=== PATIENT | male | born 1965 | race Caucasian/White ===

== ENCOUNTER → 2017-10-28 13:59 | Outpatient (CLI) | payer BC, SELFPAY | PROVIDERS: Family Provider Family Medicine; PCP Family Medicine; Visit Provider Family Medicine | DX: E66.9 Obesity, unspecified (principal); Z71.3 Dietary counseling and surveillance ==

== ENCOUNTER → 2019-03-13 12:51 | Outpatient (POV) | payer BC, SELFPAY ==
[2019-03-13 13:12] VITALS: BP 146/86; PULSE 63; RESP 18; O2SAT 99; BMI 31.3
--- NOTE | 2019-03-13 15:04 | HMH.PMCON ---
Assessment and Plan (1) Arthropathy Current visit: Yes Status: Chronic Category: Medical Code(s): M12.9 - Arthropathy, unspecified (2) Lumbar spondylosis Current visit: Yes Status: Chronic Category: Medical Code(s): M47.816 - Spondylosis without myelopathy or radiculopathy, lumbar region - Assessment and plan all Dx Assessment and Plan for all problems:: We will schedule an L4-L5 L5-S1 bilateral lumbar medial branch block/facet joint injection. Patient has had good success with this in the past we will repeat it. Patient's been instructed to call the office if he has any issues prior to his next appointment. Dr. Sanches has reviewed this note and agrees with this plan of care. This note was dictated using voice recognition software and may contain errors or omissions HPI - Data of Consult Consult date: 03/13/19 Requesting Physician: Renetta Kitchen APRN Primary Care Provider: Jasper Marcelo MD - Consult Narrative Reason for consult: Back pain History of present illness: Mr. Tran is a 53 year old male who presents today for consultation in regards to his low back pain. Patient was seen 2 years ago when he had a bilateral medial branch at L4-L5 L5-S1. He received 2 years of 80% relief. Patient's begun to have the pain return he rates it a 5 out of 10 he is continuing a home stretching program he is lost 90 pounds. He is not on any anticoagulation therapy. He would like to repeat the injection given the efficacy of it last time. He is also on anti-inflammatory therapy. CC: Renetta Kitchen APRN [facility] History I have reviewed the patient's past medical history: Yes *Have you ever received a pneumonia vaccine?: No *Have you received a flu vaccine this season?: No Laterality Cases: Bilateral: Tonsillectomy Other Surgeries: Yes: Cholecystectomy Amputation: No Fractures: Yes (LEFT HIP) - *Social History Smoking Status: Never smoker Alcohol Intake: never *Occupational Status:: other Housing: house *Travel in the last 8 weeks: None Family Hx:: Hyperlipidemia, Hypertension Review of Systems - Review of Systems ROS General: no recent weight change, no fever, no sleep disturbances Respiratory: no cough, no shortness of air, no recurring pulmonary infections Cardiovascular/Peripheral Vascular: No chest pain, No palpitations, no edema, no shortness of breath. Gastrointestinal: no incontinence, normal bowel movements reported Genitourinary: no incontinence Musculoskeletal: Back pain Psychiatric: normal mood/ affect Neurological: [denies weakness in extremities], [denies balance issues] Meds Allergies Allergy/AdvReac Type Severity Reaction Status Date / Time No Known Allergies Allergy Unverified 07/27/17 15:05 Objective Vital signs: Pulse Resp BP Pulse Ox 63 18 146/86 H 99 03/13/19 13:12 03/13/19 13:12 03/13/19 13:12 03/13/19 13:12 Narrative: Physical Exam General: Alert and oriented x3, no acute distress, pleasant and cooperative, [on room air] Lungs: Resps E/U, Symmetrical chest expansion, Eyes: PERRL Musculoskeletal: Flexion and extension of lumbar spine somewhat guarded secondary to pain, deep tendon reflexes normal, strength in upper and lower extremities [5/5], slightly antalgic gait noted, positive Kemps test bilateral lumbar spine, positive facet loading lumbar spine bilaterally Neurological: speech clear, sexer equal, no gross sensory deficits Opioid Risk Tool - Opioid Risk Tool-Male Family hx alcohol abuse: N Family hx illegal drugs: N Family hx rx drug abuse: N Personal hx alcohol abuse: N Personal hx illegal drugs: N Personal hx rx drug abuse: N Age: 45+ Hx of sexual abuse: N Mental health issues-ADD,OCD,Bipolar, etc: N Hx of depression: N Male Risk Score: 0
--- NOTE | 2019-03-13 15:07 | P.CONS_ITS ---
Assessment and Plan (1) Arthropathy Current visit: Yes Status: Chronic Category: Medical Code(s): M12.9 - Arthropathy, unspecified (2) Lumbar spondylosis Current visit: Yes Status: Chronic Category: Medical Code(s): M47.816 - Spondylosis without myelopathy or radiculopathy, lumbar region - Assessment and plan all Dx Assessment and Plan for all problems:: We will schedule an L4-L5 L5-S1 bilateral lumbar medial branch block/facet joint injection. Patient has had good success with this in the past we will repeat it. Patient's been instructed to call the office if he has any issues prior to his next appointment. Dr. Sanches has reviewed this note and agrees with this plan of care. This note was dictated using voice recognition software and may contain errors or omissions HPI - Data of Consult Consult date: 03/13/19 Requesting Physician: Renetta Kitchen APRN Primary Care Provider: Jasper Marcelo MD - Consult Narrative Reason for consult: Back pain History of present illness: Mr. Tran is a 53 year old male who presents today for consultation in regards to his low back pain. Patient was seen 2 years ago when he had a bilateral medial branch at L4-L5 L5-S1. He received 2 years of 80% relief. Patient's begun to have the pain return he rates it a 5 out of 10 he is continuing a home stretching program he is lost 90 pounds. He is not on any anticoagulation therapy. He would like to repeat the injection given the efficacy of it last time. He is also on anti-inflammatory therapy. CC: Renetta Kitchen APRN [facility] History I have reviewed the patient's past medical history: Yes *Have you ever received a pneumonia vaccine?: No *Have you received a flu vaccine this season?: No Laterality Cases: Bilateral: Tonsillectomy Other Surgeries: Yes: Cholecystectomy Amputation: No Fractures: Yes (LEFT HIP) - *Social History Smoking Status: Never smoker Alcohol Intake: never *Occupational Status:: other Housing: house *Travel in the last 8 weeks: None Family Hx:: Hyperlipidemia, Hypertension Review of Systems - Review of Systems ROS General: no recent weight change, no fever, no sleep disturbances Respiratory: no cough, no shortness of air, no recurring pulmonary infections Cardiovascular/Peripheral Vascular: No chest pain, No palpitations, no edema, no shortness of breath. Gastrointestinal: no incontinence, normal bowel movements reported Genitourinary: no incontinence Musculoskeletal: Back pain Psychiatric: normal mood/ affect Neurological: [denies weakness in extremities], [denies balance issues] Meds Allergies Allergy/AdvReac Type Severity Reaction Status Date / Time No Known Allergies Allergy Unverified 07/27/17 15:05 Objective Vital signs: Pulse Resp BP Pulse Ox 63 18 146/86 H 99 03/13/19 13:12 03/13/19 13:12 03/13/19 13:12 03/13/19 13:12 Narrative: Physical Exam General: Alert and oriented x3, no acute distress, pleasant and cooperative, [on room air] Lungs: Resps E/U, Symmetrical chest expansion, Eyes: PERRL Musculoskeletal: Flexion and extension of lumbar spine somewhat guarded secondary to pain, deep tendon reflexes normal, strength in upper and lower extremities [5/5], slightly antalgic gait noted, positive Kemps test bilateral lumbar spine, positive facet loading
== END ==
PROVIDERS: PCP Family Medicine; Visit Provider Clinical Nurse Specialist Family Health
DX: M12.9 Arthropathy, unspecified (principal); M47.816 Spondylosis without myelopathy or radiculopathy, lumbar region
CPT/HCPCS: 99202

== ENCOUNTER → 2019-05-01 14:34 | Outpatient (POV) | payer BC, SELFPAY ==
[2019-05-01 15:14] VITALS: BP 140/68; PULSE 69; RESP 18; O2SAT 98; BMI 32.5
--- NOTE | 2019-05-02 10:11 | HMH.PAINSOAP ---
[facility] Pain Management SOAP Note Subjective:: Patient is a pleasant 53-year-old white male who we are treating for low back pain with lumbar spondylosis and facet arthropathy lumbar spine. Patient has had bilateral lumbar medial branch blocks in the past at L4-L5 L5-S1. Patient rates his pain a 3 out of 10 today. He got 90% relief with the injection. He would like to repeat this potentially being a RFA candidate. Patient is not on any anticoagulation therapy. He is continuing a home stretching program. He is on anti-inflammatory medications. He has had pain for over a year and he has had over 6 months of conservative treatments. He does not have any active infections. ROS General: no recent weight change, no fever, no sleep disturbances Respiratory: no cough, no shortness of air, no recurring pulmonary infections Cardiovascular/Peripheral Vascular: No chest pain, No palpitations, no edema, no shortness of breath. Gastrointestinal: no incontinence, normal bowel movements reported Genitourinary: no incontinence Musculoskeletal: Back pain Psychiatric: normal mood/ affect, [denies depression], [denies anxiety] Neurological: [denies weakness in extremities], [denies balance issues] Objective:: Physical Exam General: Alert and oriented x3, no acute distress, pleasant and cooperative, [on room air] Lungs: Resps E/U, Symmetrical chest expansion, Eyes: PERRL Musculoskeletal: Flexion and extension of lumbar spine somewhat guarded secondary to pain, deep tendon reflexes normal, strength in upper and lower extremities [5/5], normal gait noted, positive Kemps test and positive facet loading lumbar spine bilaterally Neurological: speech clear, bark scaler 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 I do believe given the benefit of the last one this would be appropriate. Patient may be a neurotomy candidate. I will follow-up with the patient after his injection reassess his symptoms at that time he is been instructed to call the office if he has any issues prior to his next appointment. Dr. Sanches has reviewed this note and agrees with this plan of care. This note was dictated using voice recognition software and may contain errors or omissions [facility] History I have reviewed the patient's past medical history: Yes Medical History: Denies:: Cancer, Diabetes Mellitus Type 1, Diabetes Mellitus Type 2, Seizures *Have you ever received a pneumonia vaccine?: Yes *Have you received a flu vaccine this season?: Yes Other Medical History: Denies: Blood Transfusion Reaction Laterality Cases: Bilateral: Tonsillectomy Other Surgeries: Yes: Cholecystectomy Amputation: No Fractures: Yes (LEFT HIP) - *Social History Smoking Status: Current every day smoker Tobacco Type: cigarettes # Packs/Day (cigarettes): 1 Alcohol Intake: current Alcohol Intake Frequency:: holidays/special occasions only *Occupational Status:: other Housing: house *Travel in the last 8 weeks: None Family Hx:: Hyperlipidemia, Hypertension
--- NOTE | 2019-05-02 10:15 | P.CONS_ITS ---
[facility] Pain Management SOAP Note Subjective:: Patient is a pleasant 53-year-old white male who we are treating for low back pain with lumbar spondylosis and facet arthropathy lumbar spine. Patient has had bilateral lumbar medial branch blocks in the past at L4-L5 L5-S1. Patient rates his pain a 3 out of 10 today. He got 90% relief with the injection. He would like to repeat this potentially being a RFA candidate. Patient is not on any anticoagulation therapy. He is continuing a home stretching program. He is on anti-inflammatory medications. He has had pain for over a year and he has had over 6 months of conservative treatments. He does not have any active infections. ROS General: no recent weight change, no fever, no sleep disturbances Respiratory: no cough, no shortness of air, no recurring pulmonary infections Cardiovascular/Peripheral Vascular: No chest pain, No palpitations, no edema, no shortness of breath. Gastrointestinal: no incontinence, normal bowel movements reported Genitourinary: no incontinence Musculoskeletal: Back pain Psychiatric: normal mood/ affect, [denies depression], [denies anxiety] Neurological: [denies weakness in extremities], [denies balance issues] Objective:: Physical Exam General: Alert and oriented x3, no acute distress, pleasant and cooperative, [on room air] Lungs: Resps E/U, Symmetrical chest expansion, Eyes: PERRL Musculoskeletal: Flexion and extension of lumbar spine somewhat guarded secondary to pain, deep tendon reflexes normal, strength in upper and lower extremities [5/5], normal gait noted, positive Kemps test and positive facet loading lumbar spine bilaterally Neurological: speech clear, shoe 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 I do believe given the benefit of the last one this would be appropriate. Patient may be a neurotomy candidate. I will follow-up with the patient after his injection reassess his symptoms at that time he is been instructed to call the office if he has any issues prior to his next appointment. Dr. Sanches has reviewed this note and agrees with this plan of care. This note was dictated using voice recognition software and may contain errors or omissions [facility] History I have reviewed the patient's past medical history: Yes Medical History: Denies:: Cancer, Diabetes Mellitus Type 1, Diabetes Mellitus Type 2, Seizures *Have you ever received a pneumonia vaccine?: Yes *Have you received a flu vaccine this season?: Yes Other Medical History: Denies: Blood Transfusion Reaction Laterality Cases: Bilateral: Tonsillectomy Other Surgeries: Yes: Cholecystectomy Amputation: No Fractures: Yes (LEFT HIP) - *Social History Smoking Status: Current every day smoker Tobacco Type: cigarettes # Packs/Day (cigarettes): 1 Alcohol Intake: current Alcohol Intake Frequency:: holidays/special occasions only *Occupational Status:: other Housing: house *Travel in the last 8 weeks: None Family Hx:: Hyperlipidemia, Hypertension
== END ==
PROVIDERS: PCP Family Medicine; Visit Provider Clinical Nurse Specialist Family Health
DX: M51.36 Other intervertebral disc degeneration, lumbar region (principal); M47.816 Spondylosis without myelopathy or radiculopathy, lumbar region; M54.06 Panniculitis affecting regions of neck and back, lumbar region
CPT/HCPCS: 99212

== ENCOUNTER → 2019-06-23 12:35 | Outpatient (CLI) | payer BC, SELFPAY ==
[2019-06-23 12:38] LABS: Adenovirus,PCR Not Detected (NotDetected); Bordetella Pertussis Not Detected (NotDetected); Chlamydophila Pneumoniae, PCR Not Detected (NotDetected); Coronavirus 229E Not Detected (NotDetected); Coronavirus NL63 Not Detected (NotDetected); Coronavirus OC43 Not Detected (NotDetected); Human Metapneumovirus Not Detected (NotDetected); Influenza A, PCR Not Detected (NotDetected); Influenza AH1, 2009 Not Detected (NotDetected); Influenza AH1, PCR Not Detected (NotDetected); Influenza AH3,PCR Not Detected (NotDetected); Influenza B, PCR Not Detected (NotDetected); Mycoplasma Pneumoniae, PCR Not Detected (NotDetected); Parainfluenza 1, PCR Not Detected (NotDetected); Parainfluenza 2, PCR Not Detected (NotDetected); Parainfluenza 3, PCR Not Detected (NotDetected); Parainfluenza 4, PCR Not Detected (NotDetected); Respiratory Syncytial Virus Not Detected (NotDetected); Rhinovirus/Enterovirus Not Detected (NotDetected)
[2019-06-23 16:08] LABS: Coronovirus HKU1,PCR Detected (NotDetected)
== END ==
PROVIDERS: Visit Provider Family Medicine
DX: J06.9 Acute upper respiratory infection, unspecified (principal)
CPT/HCPCS: 87486; 87581; 87633; 87798

== ENCOUNTER → 2019-07-10 15:06 | Outpatient (POV) | payer BC, SELFPAY ==
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
--- NOTE | 2019-07-10 | XR_ITS ---
PROCEDURE: XR HIP RT 2-3V W/PELVIS CLINICAL INDICATION: BILATERAL HIP PAIN COMPARISON: HIP2L HIP-2 VIEWS-LT from 07/23/2014 LS5 LUMBAR SPINE 5 VIEWS from 07/23/2014 FINDINGS: There are mild osteoarthritic changes of the right hip. No fracture or dislocation. No lytic or blastic change. IMPRESSION: Minimal osteoarthritic change right hip Dictated by: Dorian Osorio MD 07/10/2019 17:05 Electronically signed by Dorian Osorio MD in [place] 07/10/2019 17:05
[2019-07-10 15:22] VITALS: BP 151/84; PULSE 67; RESP 18; O2SAT 99; BMI 33.2
--- NOTE | 2019-07-10 15:40 | HMH.PAINSOAP ---
[facility] Pain Management SOAP Note Subjective:: Patient is a pleasant 53-year-old white male who presents today for follow-up after his second lumbar medial branch block. Patient states that it is helped up to 90% rating his pain a 1 out of 10 he states his pain now is lower in his SI joint and left hip. Patient does not have any recent diagnostic imaging we will get some x-rays. Patient is continuing with chiropractic therapy and massage therapy and overall doing well. Patient and I briefly discussed an SI joint belt using a look into this. ROS General: no recent weight change, no fever, no sleep disturbances Respiratory: no cough, no shortness of air, no recurring pulmonary infections Cardiovascular/Peripheral Vascular: No chest pain, No palpitations, no edema, no shortness of breath. Gastrointestinal: no new onset incontinence, normal bowel movements reported Genitourinary: no new onset incontinence Musculoskeletal: SI joint pain Psychiatric: normal mood/ affect Neurological: [denies new onset weakness in extremities], [denies new onset balance issues] Objective:: Physical Exam General: Alert and oriented x3, no acute distress, pleasant and cooperative, [on room air] Lungs: Resps E/U, Symmetrical chest expansion, Eyes: PERRL Musculoskeletal: Flexion and extension of lumbar spine somewhat guarded secondary to pain, deep tendon reflexes normal, strength in upper and lower extremities [5/5], [abnormal gait noted] Neurological: speech clear, packer inspector equal, no gross sensory deficits Assessment:: Low back pain, spondylosis, SI joint pain, left hip pain Plan:: We will send the patient for some x-rays of his pelvis, SI joints, left hip. Patient can continue with chiropractic and massage therapy. Using a look into if the patient's insurance will cover massage therapy if I write a prescription for him if it does I would be happy to write him a prescription. Patient has been instructed to call the office if he has any issues prior to his next appointment. Dr. Sanches has reviewed this note and agrees with this plan of care. This note was dictated using voice recognition software and may contain errors or omissions [facility] History I have reviewed the patient's past medical history: Yes Medical History: Denies:: Cancer, Diabetes Mellitus Type 1, Diabetes Mellitus Type 2, Seizures *Have you ever received a pneumonia vaccine?: Yes *Have you received a flu vaccine this season?: Yes Other Medical History: Denies: Blood Transfusion Reaction Laterality Cases: Bilateral: Tonsillectomy Other Surgeries: Yes: Cholecystectomy Amputation: No Fractures: Yes (LEFT HIP) - *Social History Smoking Status: Current every day smoker Tobacco Type: cigarettes # Packs/Day (cigarettes): 1 Alcohol Intake: current Alcohol Intake Frequency:: holidays/special occasions only *Occupational Status:: other Housing: house *Travel in the last 8 weeks: None Family Hx:: Hyperlipidemia, Hypertension
--- NOTE | 2019-07-10 15:43 | P.CONS_ITS ---
[facility] Pain Management SOAP Note Subjective:: Patient is a pleasant 53-year-old white male who presents today for follow-up after his second lumbar medial branch block. Patient states that it is helped up to 90% rating his pain a 1 out of 10 he states his pain now is lower in his SI joint and left hip. Patient does not have any recent diagnostic imaging we will get some x-rays. Patient is continuing with chiropractic therapy and massage therapy and overall doing well. Patient and I briefly discussed an SI joint belt using a look into this. ROS General: no recent weight change, no fever, no sleep disturbances Respiratory: no cough, no shortness of air, no recurring pulmonary infections Cardiovascular/Peripheral Vascular: No chest pain, No palpitations, no edema, no shortness of breath. Gastrointestinal: no new onset incontinence, normal bowel movements reported Genitourinary: no new onset incontinence Musculoskeletal: SI joint pain Psychiatric: normal mood/ affect Neurological: [denies new onset weakness in extremities], [denies new onset balance issues] Objective:: Physical Exam General: Alert and oriented x3, no acute distress, pleasant and cooperative, [on room air] Lungs: Resps E/U, Symmetrical chest expansion, Eyes: PERRL Musculoskeletal: Flexion and extension of lumbar spine somewhat guarded secondary to pain, deep tendon reflexes normal, strength in upper and lower extremities [5/5], [abnormal gait noted] Neurological: speech clear, boat joiner helper equal, no gross sensory deficits Assessment:: Low back pain, spondylosis, SI joint pain, left hip pain Plan:: We will send the patient for some x-rays of his pelvis, SI joints, left hip. Patient can continue with chiropractic and massage therapy. Using a look into if the patient's insurance will cover massage therapy if I write a prescription for him if it does I would be happy to write him a prescription. Patient has been instructed to call the office if he has any issues prior to his next appointment. Dr. Sanches has reviewed this note and agrees with this plan of care. This note was dictated using voice recognition software and may contain errors or omissions [facility] History I have reviewed the patient's past medical history: Yes Medical History: Denies:: Cancer, Diabetes Mellitus Type 1, Diabetes Mellitus Type 2, Seizures *Have you ever received a pneumonia vaccine?: Yes *Have you received a flu vaccine this season?: Yes Other Medical History: Denies: Blood Transfusion Reaction Laterality Cases: Bilateral: Tonsillectomy Other Surgeries: Yes: Cholecystectomy Amputation: No Fractures: Yes (LEFT HIP) - *Social History Smoking Status: Current every day smoker Tobacco Type: cigarettes # Packs/Day (cigarettes): 1 Alcohol Intake: current Alcohol Intake Frequency:: holidays/special occasions only *Occupational Status:: other Housing: house *Travel in the last 8 weeks: None Family Hx:: Hyperlipidemia, Hypertension
--- NOTE | 2019-07-10 16:11 | XR_ITS ---
PROCEDURE: XR SACROILIAC JOINT BI MIN 3V CLINICAL INDICATION: LOW BACK PAIN COMPARISON: LSWO CT LUMBAR SPINE W/O CONTRAST from 01/25/2017 FINDINGS: There is some mild sclerosis of the right SI joint. The left SI joint has an unremarkable appearance. Postsurgical and degenerative changes are present in the left hip IMPRESSION: Mild sclerosis of the right SI joint Dictated by: Dorian Osorio MD 07/10/2019 17:10 Electronically signed by Dorian Osorio MD in [place] 07/10/2019 17:10
== END ==
PROVIDERS: PCP Family Medicine; Visit Provider Clinical Nurse Specialist Family Health
DX: M54.5 Low back pain (principal); M25.552 Pain in left hip; M46.1 Sacroiliitis, not elsewhere classified; M47.9 Spondylosis, unspecified
CPT/HCPCS: 72202; 73502; 99212

== ENCOUNTER → 2019-07-24 15:08 | Outpatient (POV) | payer BC, SELFPAY ==
[2019-07-24 15:41] VITALS: BP 148/82; PULSE 65; RESP 18; O2SAT 99; BMI 33.2
--- NOTE | 2019-07-25 08:23 | P.CONS_ITS ---
[facility] Pain Management SOAP Note Subjective:: Date of service 07/24/2019 Patient is a pleasant 53-year-old white male who presents today for follow-up after a left SI joint injection. Patient's been treated for low back pain with left leg pain. He is also been treated for buttock and left hip pain. Patient says that he got approximately 90% relief following his injection. He does rate his pain 1 out of 10 today. Patient does say his pain return for 1 day since getting the injection, however, patient says that he did follow-up with massage therapy and did not get relief. He does say that he is not interested in further injection therapy at this time, as he feels his pain is doing much better overall. He is continuing with anti-inflammatories on a home stretching program. Patient does also state chiropractic therapy. Review of Systems General: No recent weight changes, no fever, no sleep disturbances Respiratory: No cough, no shortness of air, no recurring pulmonary infections Cardiovascular/peripheral vascular: No chest pain, no palpitations, no edema, no shortness of breath Gastrointestinal: No new onset incontinence, normal bowel movements reported Genitourinary: No new onset incontinence Musculoskeletal: Low back pain, left buttock pain, left hip pain, left leg pain Psychiatric: Normal mood/affect Neurological: [Denies weakness in extremities], [denies balance issues] Objective:: Physical exam General: Alert and oriented x3, no acute distress, pleasant and cooperative, [on room air] Lungs: Respirations even and unlabored, symmetrical chest expansion Eyes: PERRL Musculoskeletal: Flexion and extension of lumbar spine somewhat guarded secondary to pain, deep tendon reflexes normal, strength in upper and lower extremities [5/5], [abnormal gait noted] Neurological: Speech clear, 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 He and I did discuss possible excess stabilization procedure in the future if he continues to need SI joint injections. He is not interested in this type of therapy at this time. We also discussed a SI belt. Patient states he will purchase 1 to see if he can get relief with it. Patient would like to follow-up with us as needed. He has been instructed to contact clinic if he has any concerns. Dr. Sanches has reviewed this note and agrees with this plan of care. This note was dictated using voice recognition software and make contain errors or omissions. [facility] History I have reviewed the patient's past medical history: Yes Medical History: Denies:: Cancer, Diabetes Mellitus Type 1, Diabetes Mellitus Type 2, Seizures *Have you ever received a pneumonia vaccine?: Yes *Have you received a flu vaccine this season?: Yes Other Medical History: Denies: Blood Transfusion Reaction Laterality Cases: Bilateral: Tonsillectomy Other Surgeries: Yes: Cholecystectomy Amputation: No Fractures: Yes (LEFT HIP) - *Social History Smoking Status: Current every day smoker Tobacco Type: cigarettes # Packs/Day (cigarettes): 1 Alcohol Intake: current Alcohol Intake Frequency:: holidays/special occasions only *Occupational Status:: other Housing: house *Travel in the last 8 weeks: None Family Hx:: Hyperlipidemia, Hypertension
== END ==
PROVIDERS: PCP Family Medicine; Visit Provider Clinical Nurse Specialist Family Health
DX: M46.1 Sacroiliitis, not elsewhere classified (principal); M70.62 Trochanteric bursitis, left hip
CPT/HCPCS: 99212

== ENCOUNTER → 2021-09-18 12:23 | Outpatient (CLI) | payer BC, SELFPAY ==
[2021-09-18 13:10] LABS: Adenovirus,PCR Not Detected (NotDetected); Bordetella Pertussis Not Detected (NotDetected); Chlamydophila Pneumoniae, PCR Not Detected (NotDetected); Coronavirus 19, PCR Not Detected (NotDetected); Coronavirus 229E Not Detected (NotDetected); Coronavirus NL63 Not Detected (NotDetected); Coronavirus OC43 Not Detected (NotDetected); Coronovirus HKU1,PCR Not Detected (NotDetected); Influenza A, PCR Not Detected (NotDetected); Influenza AH1, 2009 Not Detected (NotDetected); Influenza AH1, PCR Not Detected (NotDetected); Influenza AH3,PCR Not Detected (NotDetected); Influenza B, PCR Not Detected (NotDetected); Mycoplasma Pneumoniae, PCR Not Detected (NotDetected); Parainfluenza 1, PCR Not Detected (NotDetected); Parainfluenza 2, PCR Not Detected (NotDetected); Parainfluenza 3, PCR Not Detected (NotDetected); Parainfluenza 4, PCR Not Detected (NotDetected); Respiratory Syncytial Virus Not Detected (NotDetected); Rhinovirus/Enterovirus Not Detected (NotDetected)
[2021-09-18 13:29] LABS: Basophils % 1.3 % (0.1-2.0); Eosinophils % 0.4 % (0.1-12.0); Hemoglobin 12.2 g/dL (14.1-18.0); Lymphocytes # 1.5 K/mm3 (0.7-4.5); Lymphocytes % 54.9 % (10-50); Mean Corpuscular HGB Conc 33.8 g/dL (31.8-35.4); Mean Corpuscular Hemoglobin 30.1 pg (27.0-31.2); Mean Platelet Volume 9.6 fl (7.4-10.4); Monocytes # 0.1 K/mm3 (0.1-1.0); Monocytes % 3.3 % (1.7-9.3); Neutrophils # 1.1 K/mm3 (1.8-7.8); Neutrophils % 40.2 % (37.0-80.0); Platelet Count 80 K/mm3 (142-424); Red Blood Count 4.05 M/mm3 (4.60-6.20); Red Cell Distribution Width 18.9 % (11.5-17.5); White Blood Count 2.6 K/mm3 (4.8-10.8)
[2021-09-18 13:41] LABS: MANUAL DIFFERENTIAL MANUAL DIFFERENTIAL (MANUAL DIFF)
[2021-09-18 17:31] LABS: Lymphocytes % 67 % (10-50); Monocytes % 4 % (2-9); Neutrophils % 29 % (42-76); Platelet Estimate Moderate Decrease; RBC Morphology Normal; Total Cells Counted 100
[2021-09-18 17:43] LABS: Human Metapneumovirus Detected (NotDetected)
== END ==
PROVIDERS: PCP Family Medicine; Visit Provider Family Medicine
DX: Z20.822 Contact with and (suspected) exposure to COVID-19 (principal); B97.81 Human metapneumovirus as the cause of diseases classified elsewhere
CPT/HCPCS: 36415; 85007; 85025; 87581; 87632; 87798; C9803; U0003; U0005

== ENCOUNTER → 2022-01-01 11:55 | Outpatient (CLI) | payer BC, SELFPAY ==
[2022-01-01 12:32] LABS: Basophils # 0.1 K/mm3 (0-0.2); Eosinophils % 0.4 % (0.1-12.0); Hematocrit 31.6 % (42.0-52.0); Hemoglobin 10.4 g/dL (14.1-18.0); Lymphocytes # 2.2 K/mm3 (0.7-4.5); Lymphocytes % 82.9 % (10-50); Mean Corpuscular HGB Conc 32.9 g/dL (31.8-35.4); Mean Corpuscular Hemoglobin 29.8 pg (27.0-31.2); Mean Corpuscular Volume 90.8 fl (80-94); Mean Platelet Volume 15.5 fl (7.4-10.4); Monocytes # 0.1 K/mm3 (0.1-1.0); Monocytes % 2.9 % (1.7-9.3); Neutrophils # 0.4 K/mm3 (1.8-7.8); Red Blood Count 3.48 M/mm3 (4.60-6.20); Red Cell Distribution Width 19.5 % (11.5-17.5); White Blood Count 2.6 K/mm3 (4.8-10.8)
[2022-01-01 12:33] LABS: Neutrophils % 13.8 % (37.0-80.0)
[2022-01-01 12:37] LABS: Platelet Count 30 K/mm3 (142-424)
[2022-01-01 12:41] LABS: Alanine Aminotransferase 37 U/L (12-78); Albumin Level 4.4 g/dl (3.5-5.0); Albumin/Globulin Ratio 1.3 (1.1-1.8); Alkaline Phosphatase 82 U/L (38-126); Anion Gap 11.6 mEq/L (5-15); Aspartate Amino Transferase 38 U/L (17-59); Bilirubin,Total 0.4 mg/dl (0.2-1.3); Blood Urea Nitrogen 10 mg/dl (9-20); Calcium 9.1 mg/dl (8.4-10.2); Carbon Dioxide 29 mmol/L (22.0-30.0); Chloride 103 mmol/L (98-107); Estimated Glomerular Filt Rate 117 ml/min (>60); GFR (African American) 142 ML/MIN (>60); Globulin 3.3 g/dL (1.3-3.2); Glucose 114 mg/dl (74-100); Lactate Dehydrogenase 253 U/L (313-618); Potassium 3.6 mmoL/L (3.5-5.1); Sodium 140 mmol/L (136-145); Total Protein,Serum 7.7 g/dl (6.3-8.2); Uric Acid 5.7 mg/dl (3.5-8.5)
[2022-01-01 12:42] LABS: Iron 121 ug/dL (49-181)
[2022-01-01 12:44] LABS: Activated Partial Thrombo Time 25.6 seconds (22.8-30.6); Fibrinogen 425 mg/dL (229.9-363.5); INR 1.07 (0.9-1.1); MANUAL DIFFERENTIAL MANUAL DIFFERENTIAL (MANUAL DIFF)
[2022-01-01 12:52] LABS: Total Iron Binding Capacity 324 ug/dL (261-462)
[2022-01-01 13:13] LABS: Prostate Specific Ag Screen 0.7 ng/ml (0.0-4.0)
[2022-01-01 13:33] LABS: Lymphocytes % 85 % (10-50); Monocytes % 11 % (2-9); Neutrophils % 4 % (42-76); Total Cells Counted 100
[2022-01-01 13:34] LABS: Anisocytosis 1+; Hypochromasia 1+; Ovalocytes 1+; Platelet Estimate Marked Decrease
[2022-01-01 13:37] LABS: Ferritin 236 ng/ml (17.9-464)
[2022-01-01 13:47] LABS: Vitamin B12 596 pg/mL (239-931)
--- NOTE | 2022-01-01 14:21 | PC.NURSE ---
Vidal GUTIERREZ CALLED AND REPORTED PLATELET COUNT OF 30. RN REPEATED AND VERIFIED PT NAME, , AND LAB VALUE. CRITICAL RESULTS CALLED TO Zac VALLEJO. NO NEW ORDERS RECIEVED AT THIS TIME.
[2022-01-02 13:12] LABS: Albumin 3.9 g/dL (2.9-4.4); Alpha-1-Globulin 0.3 g/dL (0.0-0.4); Alpha-2-Globulin 0.6 g/dL (0.4-1.0); Gamma Globulin 1.5 g/dL (0.4-1.8); Protein, Total 7.3 g/dL (6.0-8.5)
[2022-01-02 14:13] LABS: Immunoglobulin A, Qn 385 mg/dL (90-386); Immunoglobulin G, Qn 1364 mg/dL (603-1613); Immunoglobulin M, Qn 247 mg/dL (20-172)
[2022-01-03 12:07] LABS: Peripheral Smear Review Scanned Result
[2022-01-03 20:49] LABS: Free Kappa Lt Chains 34.4; Free Lambda Lt Chains 28.5
== END ==
PROVIDERS: Visit Provider Internal Medicine Medical Oncology
DX: D61.818 Other pancytopenia (principal); Z12.5 Encounter for screening for malignant neoplasm of prostate
CPT/HCPCS: 36415; 80053; 82607; 82728; 82746; 82784; 83540; 83550; 83615; 83883; 84155; 84165; 84550; 85007; 85025; 85384; 85610; 85730; 86334; G0103

== ENCOUNTER 2022-01-09 10:08 | Outpatient (CLI) | payer BC, SELFPAY ==
[2022-01-09 10:16] VITALS: BMI 37.6
[2022-01-09 10:37] LABS: Basophils # 0.1 K/mm3 (0-0.2); Basophils % 2.9 % (0.1-2.0); Eosinophils % 0.1 % (0.1-12.0); Hematocrit 28.4 % (42.0-52.0); Hemoglobin 9.6 g/dL (14.1-18.0); Lymphocytes # 2.6 K/mm3 (0.7-4.5); Lymphocytes % 81.1 % (10-50); Mean Corpuscular HGB Conc 33.9 g/dL (31.8-35.4); Mean Corpuscular Hemoglobin 30.6 pg (27.0-31.2); Mean Corpuscular Volume 90.2 fl (80-94); Monocytes # 0.1 K/mm3 (0.1-1.0); Monocytes % 2.9 % (1.7-9.3); Neutrophils # 0.4 K/mm3 (1.8-7.8); Red Blood Count 3.15 M/mm3 (4.60-6.20); Red Cell Distribution Width 19.8 % (11.5-17.5); White Blood Count 3.2 K/mm3 (4.8-10.8)
[2022-01-09 10:38] LABS: Neutrophils % 12.9 % (37.0-80.0)
[2022-01-09 10:39] LABS: Platelet Count 46 K/mm3 (142-424)
[2022-01-09 10:40] LABS: MANUAL DIFFERENTIAL MANUAL DIFFERENTIAL (MANUAL DIFF)
[2022-01-09 11:00] LABS: Lymphocytes % 74 % (10-50); Monocytes % 16 % (2-9); Neutrophils % 3 % (42-76); Nucleated Red Blood Cells 1; Ovalocytes 1+; Platelet Estimate Marked Decrease; Total Cells Counted 100
[2022-01-09 11:01] LABS: Anisocytosis 1+; Hypochromasia 1+
--- NOTE | 2022-01-09 12:00 | PC.NURSE ---
1035 CBC collected per R hand x 1 stick. Patient here for labs only.
--- NOTE | 2022-01-09 12:02 | PC.NURSE ---
1025 CBC collected via R hand x1 stick. Patient here for labs only.
== END 2022-01-09 10:30 | disposition home or self-care (01) ==
LOC: INF 10:10
PROVIDERS: PCP Family Medicine; Visit Provider Internal Medicine Medical Oncology
DX: D61.818 Other pancytopenia (principal)
CPT/HCPCS: 36415; 85007; 85025

== ENCOUNTER → 2022-03-11 14:51 | Outpatient (CLI) | payer BC, SELFPAY ==
[2022-03-11 15:01] VITALS: BMI 34.7
[2022-03-11 15:15] LABS: Basophils # 0.1 K/mm3 (0-0.2); Basophils % 1.6 % (0.1-2.0); Eosinophils % 0.3 % (0.1-12.0); Hematocrit 31.8 % (42.0-52.0); Hemoglobin 9.7 g/dL (14.1-18.0); Lymphocytes # 1.3 K/mm3 (0.7-4.5); Lymphocytes % 16.4 % (10-50); Mean Corpuscular HGB Conc 30.4 g/dL (31.8-35.4); Mean Corpuscular Hemoglobin 30.8 pg (27.0-31.2); Mean Corpuscular Volume 101.5 fl (80-94); Mean Platelet Volume 9.4 fl (7.4-10.4); Monocytes # 1.5 K/mm3 (0.1-1.0); Monocytes % 19.4 % (1.7-9.3); Neutrophils # 4.9 K/mm3 (1.8-7.8); Neutrophils % 62.3 % (37.0-80.0); Platelet Count 417 K/mm3 (142-424); Red Blood Count 3.13 M/mm3 (4.60-6.20); Red Cell Distribution Width 22.2 % (11.5-17.5); White Blood Count 7.9 K/mm3 (4.8-10.8)
[2022-03-11 15:23] LABS: Potassium 3.3 mmoL/L (3.5-5.1)
[2022-03-11 15:24] LABS: Chloride 108 mmol/L (98-107); Sodium 142 mmol/L (136-145)
[2022-03-11 15:25] LABS: Alanine Aminotransferase 36 U/L (12-78); Aspartate Amino Transferase 55 U/L (17-59); Blood Urea Nitrogen 6 mg/dl (9-20); Creatinine Clearance Estimated 210 mL/min (50-200); Estimated Glomerular Filt Rate 140 ml/min (>60); GFR (African American) 169 ML/MIN (>60)
[2022-03-11 15:26] LABS: Albumin Level 3.4 g/dl (3.5-5.0); Albumin/Globulin Ratio 1.1 (1.1-1.8); Anion Gap 9.3 mEq/L (5-15); Calcium 9.1 mg/dl (8.4-10.2); Carbon Dioxide 28 mmol/L (22.0-30.0); Glucose 127 mg/dl (74-100); Total Protein,Serum 6.4 g/dl (6.3-8.2)
[2022-03-11 15:27] LABS: Alkaline Phosphatase 109 U/L (38-126); Bilirubin,Total 0.2 mg/dl (0.2-1.3)
== END ==
PROVIDERS: PCP Family Medicine
DX: Z45.2 Encounter for adjustment and management of vascular access device (principal)
CPT/HCPCS: 36592; 80053; 85025

== ENCOUNTER 2022-03-18 14:52 | Outpatient (CLI) | payer BC, SELFPAY ==
[2022-03-18 14:59] VITALS: BMI 34.7
[2022-03-18 15:21] LABS: Basophils # 0.1 K/mm3 (0-0.2); Basophils % 1.1 % (0.1-2.0); Eosinophils # 0.1 K/mm3 (0.0-0.4); Eosinophils % 0.9 % (0.1-12.0); Hematocrit 36.4 % (42.0-52.0); Lymphocytes % 11.2 % (10-50); Mean Corpuscular HGB Conc 30.4 g/dL (31.8-35.4); Mean Corpuscular Hemoglobin 31.1 pg (27.0-31.2); Mean Corpuscular Volume 102.2 fl (80-94); Mean Platelet Volume 8.6 fl (7.4-10.4); Monocytes % 11.2 % (1.7-9.3); Neutrophils # 6.8 K/mm3 (1.8-7.8); Neutrophils % 75.6 % (37.0-80.0); Platelet Count 396 K/mm3 (142-424); Red Blood Count 3.56 M/mm3 (4.60-6.20); Red Cell Distribution Width 20.4 % (11.5-17.5)
[2022-03-18 15:24] LABS: Alanine Aminotransferase 29 U/L (12-78); Albumin Level 3.5 g/dl (3.5-5.0); Albumin/Globulin Ratio 1.2 (1.1-1.8); Alkaline Phosphatase 102 U/L (38-126); Anion Gap 6.4 mEq/L (5-15); Aspartate Amino Transferase 40 U/L (17-59); Bilirubin,Total 0.3 mg/dl (0.2-1.3); Blood Urea Nitrogen 4 mg/dl (9-20); Calcium 9.1 mg/dl (8.4-10.2); Carbon Dioxide 28 mmol/L (22.0-30.0); Chloride 109 mmol/L (98-107); Creatinine Clearance Estimated 180 mL/min (50-200); Estimated Glomerular Filt Rate 117 ml/min (>60); GFR (African American) 142 ML/MIN (>60); Glucose 150 mg/dl (74-100); Potassium 3.4 mmoL/L (3.5-5.1); Sodium 140 mmol/L (136-145); Total Protein,Serum 6.5 g/dl (6.3-8.2)
== END 2022-03-18 15:25 | disposition home or self-care (01) ==
PROVIDERS: PCP Family Medicine; Visit Provider Internal Medicine Medical Oncology
DX: Z45.2 Encounter for adjustment and management of vascular access device (principal)
CPT/HCPCS: 36592; 80053; 85025

== ENCOUNTER 2022-03-25 11:04 | Outpatient (CLI) | payer BC, SELFPAY ==
[2022-03-25 11:10] VITALS: BMI 34.7
[2022-03-25 11:25] LABS: Basophils # 0.2 K/mm3 (0-0.2); Basophils % 1.5 % (0.1-2.0); Eosinophils # 0.1 K/mm3 (0.0-0.4); Eosinophils % 1.3 % (0.1-12.0); Hematocrit 40.3 % (42.0-52.0); Hemoglobin 11.9 g/dL (14.1-18.0); Lymphocytes # 0.9 K/mm3 (0.7-4.5); Lymphocytes % 8.1 % (10-50); Mean Corpuscular HGB Conc 29.4 g/dL (31.8-35.4); Mean Corpuscular Hemoglobin 30.5 pg (27.0-31.2); Mean Corpuscular Volume 103.6 fl (80-94); Mean Platelet Volume 8.3 fl (7.4-10.4); Neutrophils # 8.6 K/mm3 (1.8-7.8); Neutrophils % 80.1 % (37.0-80.0); Platelet Count 384 K/mm3 (142-424); Red Blood Count 3.89 M/mm3 (4.60-6.20); Red Cell Distribution Width 18.9 % (11.5-17.5); White Blood Count 10.7 K/mm3 (4.8-10.8)
[2022-03-25 11:34] LABS: Chloride 108 mmol/L (98-107); Potassium 3.7 mmoL/L (3.5-5.1); Sodium 141 mmol/L (136-145)
[2022-03-25 11:36] LABS: Blood Urea Nitrogen 6 mg/dl (9-20); Creatinine Clearance Estimated 210 mL/min (50-200); Estimated Glomerular Filt Rate 140 ml/min (>60); GFR (African American) 169 ML/MIN (>60)
[2022-03-25 11:37] LABS: Alanine Aminotransferase 29 U/L (12-78); Albumin Level 3.9 g/dl (3.5-5.0); Albumin/Globulin Ratio 1.2 (1.1-1.8); Alkaline Phosphatase 95 U/L (38-126); Anion Gap 9.7 mEq/L (5-15); Aspartate Amino Transferase 40 U/L (17-59); Bilirubin,Total 0.3 mg/dl (0.2-1.3); Calcium 9.3 mg/dl (8.4-10.2); Carbon Dioxide 27 mmol/L (22.0-30.0); Globulin 3.3 g/dL (1.3-3.2); Glucose 111 mg/dl (74-100); Total Protein,Serum 7.2 g/dl (6.3-8.2)
== END 2022-03-25 11:39 | disposition home or self-care (01) ==
PROVIDERS: PCP Family Medicine; Visit Provider Internal Medicine Medical Oncology
DX: Z45.2 Encounter for adjustment and management of vascular access device (principal)
CPT/HCPCS: 36592; 80053; 85025; J1642

== ENCOUNTER 2022-03-31 11:29 | Outpatient (CLI) | payer BC, SELFPAY ==
[2022-03-31 11:35] VITALS: BMI 34.7
[2022-03-31 11:54] LABS: Basophils # 0.1 K/mm3 (0-0.2); Basophils % 1.2 % (0.1-2.0); Eosinophils # 0.2 K/mm3 (0.0-0.4); Eosinophils % 1.4 % (0.1-12.0); Hematocrit 40.3 % (42.0-52.0); Hemoglobin 12.1 g/dL (14.1-18.0); Lymphocytes # 0.9 K/mm3 (0.7-4.5); Lymphocytes % 8.1 % (10-50); Mean Corpuscular HGB Conc 29.9 g/dL (31.8-35.4); Mean Corpuscular Hemoglobin 30.5 pg (27.0-31.2); Mean Corpuscular Volume 101.8 fl (80-94); Mean Platelet Volume 7.9 fl (7.4-10.4); Monocytes # 0.9 K/mm3 (0.1-1.0); Monocytes % 8.2 % (1.7-9.3); Neutrophils # 9.1 K/mm3 (1.8-7.8); Neutrophils % 81.1 % (37.0-80.0); Platelet Count 307 K/mm3 (142-424); Red Blood Count 3.96 M/mm3 (4.60-6.20); Red Cell Distribution Width 17.5 % (11.5-17.5); White Blood Count 11.3 K/mm3 (4.8-10.8)
[2022-03-31 11:57] LABS: Chloride 107 mmol/L (98-107); Potassium 3.6 mmoL/L (3.5-5.1); Sodium 142 mmol/L (136-145)
[2022-03-31 11:59] LABS: Alanine Aminotransferase 23 U/L (12-78); Alkaline Phosphatase 83 U/L (38-126); Aspartate Amino Transferase 31 U/L (17-59); Bilirubin,Total 0.4 mg/dl (0.2-1.3); Blood Urea Nitrogen 7 mg/dl (9-20); Creatinine Clearance Estimated 180 mL/min (50-200); Estimated Glomerular Filt Rate 117 ml/min (>60); GFR (African American) 142 ML/MIN (>60)
[2022-03-31 12:00] LABS: Albumin/Globulin Ratio 1.3 (1.1-1.8); Anion Gap 13.6 mEq/L (5-15); Calcium 8.6 mg/dl (8.4-10.2); Carbon Dioxide 25 mmol/L (22.0-30.0); Globulin 3.2 g/dL (1.3-3.2); Glucose 134 mg/dl (74-100); Total Protein,Serum 7.2 g/dl (6.3-8.2)
== END 2022-03-31 11:55 | disposition home or self-care (01) ==
LOC: INF 11:30
PROVIDERS: PCP Family Medicine
DX: D61.818 Other pancytopenia (principal); Z45.2 Encounter for adjustment and management of vascular access device
CPT/HCPCS: 36592; 80053; 85025

== ENCOUNTER 2022-04-15 09:53 | Outpatient (CLI) | payer BC, SELFPAY ==
[2022-04-15 09:58] VITALS: BMI 34.7
[2022-04-15 10:16] LABS: Basophils # 0.1 K/mm3 (0-0.2); Basophils % 0.8 % (0.1-2.0); Eosinophils # 0.4 K/mm3 (0.0-0.4); Eosinophils % 5.9 % (0.1-12.0); Hematocrit 39.9 % (42.0-52.0); Hemoglobin 12.2 g/dL (14.1-18.0); Lymphocytes # 0.6 K/mm3 (0.7-4.5); Lymphocytes % 8.6 % (10-50); Mean Corpuscular HGB Conc 30.5 g/dL (31.8-35.4); Mean Corpuscular Hemoglobin 29.9 pg (27.0-31.2); Mean Platelet Volume 8.3 fl (7.4-10.4); Monocytes # 0.2 K/mm3 (0.1-1.0); Monocytes % 3.5 % (1.7-9.3); Neutrophils # 5.5 K/mm3 (1.8-7.8); Neutrophils % 81.2 % (37.0-80.0); Platelet Count 277 K/mm3 (142-424); Red Blood Count 4.07 M/mm3 (4.60-6.20); White Blood Count 6.8 K/mm3 (4.8-10.8)
[2022-04-15 10:27] LABS: Alanine Aminotransferase 27 U/L (12-78); Albumin/Globulin Ratio 1.2 (1.1-1.8); Alkaline Phosphatase 99 U/L (38-126); Aspartate Amino Transferase 33 U/L (17-59); Blood Urea Nitrogen 12 mg/dl (9-20); Calcium 9.3 mg/dl (8.4-10.2); Carbon Dioxide 28 mmol/L (22.0-30.0); Chloride 105 mmol/L (98-107); Creatinine Clearance Estimated 157 mL/min (50-200); Estimated Glomerular Filt Rate 100 ml/min (>60); GFR (African American) 121 ML/MIN (>60); Globulin 3.3 g/dL (1.3-3.2); Glucose 106 mg/dl (74-100); Sodium 140 mmol/L (136-145); Total Protein,Serum 7.3 g/dl (6.3-8.2)
[2022-04-15 10:30] LABS: Bilirubin,Total < 0.1 mg/dl (0.2-1.3)
== END 2022-04-15 10:25 | disposition home or self-care (01) ==
LOC: INF 09:55
PROVIDERS: PCP Family Medicine; Visit Provider Internal Medicine Medical Oncology
DX: D61.818 Other pancytopenia (principal); Z45.2 Encounter for adjustment and management of vascular access device
CPT/HCPCS: 36592; 80053; 85025

== ENCOUNTER 2022-04-17 09:55 | Outpatient (CLI) | payer BC, SELFPAY ==
[2022-04-17 10:01] VITALS: BMI 34.7
--- NOTE | 2022-04-17 10:05 | PC.NURSE ---
1005-collected labs via picc line;will wait for results.
[2022-04-17 10:23] LABS: Basophils # 0.1 K/mm3 (0-0.2); Basophils % 1.4 % (0.1-2.0); Eosinophils # 0.3 K/mm3 (0.0-0.4); Eosinophils % 4.8 % (0.1-12.0); Hematocrit 37.2 % (42.0-52.0); Hemoglobin 12.2 g/dL (14.1-18.0); Lymphocytes # 0.6 K/mm3 (0.7-4.5); Lymphocytes % 8.8 % (10-50); Mean Corpuscular HGB Conc 32.9 g/dL (31.8-35.4); Mean Corpuscular Hemoglobin 31.2 pg (27.0-31.2); Mean Platelet Volume 8.4 fl (7.4-10.4); Monocytes # 0.3 K/mm3 (0.1-1.0); Monocytes % 4.3 % (1.7-9.3); Neutrophils # 5.8 K/mm3 (1.8-7.8); Neutrophils % 80.6 % (37.0-80.0); Platelet Count 199 K/mm3 (142-424); Red Blood Count 3.92 M/mm3 (4.60-6.20); Red Cell Distribution Width 16.2 % (11.5-17.5); White Blood Count 7.2 K/mm3 (4.8-10.8)
--- NOTE | 2022-04-17 10:25 | PC.NURSE ---
1025-pt labs ok per standing order hgb 12.2 and plt 199; pt will return next week
[2022-04-17 10:35] LABS: Alanine Aminotransferase 25 U/L (12-78); Albumin/Globulin Ratio 1.3 (1.1-1.8); Alkaline Phosphatase 88 U/L (38-126); Anion Gap 9.8 mEq/L (5-15); Aspartate Amino Transferase 32 U/L (17-59); Blood Urea Nitrogen 14 mg/dl (9-20); Carbon Dioxide 29 mmol/L (22.0-30.0); Chloride 105 mmol/L (98-107); Creatinine Clearance Estimated 157 mL/min (50-200); Estimated Glomerular Filt Rate 100 ml/min (>60); GFR (African American) 121 ML/MIN (>60); Globulin 3.2 g/dL (1.3-3.2); Glucose 114 mg/dl (74-100); Potassium 3.8 mmoL/L (3.5-5.1); Sodium 140 mmol/L (136-145); Total Protein,Serum 7.2 g/dl (6.3-8.2)
[2022-04-17 10:46] LABS: Bilirubin,Total < 0.1 mg/dl (0.2-1.3)
== END 2022-04-17 10:25 | disposition home or self-care (01) ==
LOC: INF 09:55
PROVIDERS: PCP Family Medicine
DX: C92.00 Acute myeloblastic leukemia, not having achieved remission (principal)
CPT/HCPCS: 36592; 80053; 85025

== ENCOUNTER 2022-04-21 14:23 | Outpatient (CLI) | payer BC, SELFPAY ==
[2022-04-21 14:27] VITALS: BMI 34.7
[2022-04-21 14:41] LABS: Basophils % 1.2 % (0.1-2.0); Eosinophils # 0.3 K/mm3 (0.0-0.4); Eosinophils % 8.8 % (0.1-12.0); Hematocrit 36.4 % (42.0-52.0); Lymphocytes # 0.5 K/mm3 (0.7-4.5); Lymphocytes % 15.5 % (10-50); Mean Corpuscular HGB Conc 32.9 g/dL (31.8-35.4); Mean Corpuscular Hemoglobin 31.4 pg (27.0-31.2); Mean Corpuscular Volume 95.4 fl (80-94); Mean Platelet Volume 9.4 fl (7.4-10.4); Monocytes # 0.2 K/mm3 (0.1-1.0); Monocytes % 5.2 % (1.7-9.3); Neutrophils # 2.3 K/mm3 (1.8-7.8); Neutrophils % 69.3 % (37.0-80.0); Platelet Count 102 K/mm3 (142-424); Red Blood Count 3.82 M/mm3 (4.60-6.20); Red Cell Distribution Width 16.9 % (11.5-17.5); White Blood Count 3.4 K/mm3 (4.8-10.8)
[2022-04-21 14:45] LABS: Chloride 105 mmol/L (98-107); Potassium 3.6 mmoL/L (3.5-5.1); Sodium 142 mmol/L (136-145)
[2022-04-21 14:48] LABS: Alanine Aminotransferase 27 U/L (12-78); Albumin Level 4.2 g/dl (3.5-5.0); Albumin/Globulin Ratio 1.4 (1.1-1.8); Alkaline Phosphatase 79 U/L (38-126); Anion Gap 14.6 mEq/L (5-15); Aspartate Amino Transferase 33 U/L (17-59); Bilirubin,Total < 0.1 mg/dl (0.2-1.3); Blood Urea Nitrogen 11 mg/dl (9-20); Calcium 8.5 mg/dl (8.4-10.2); Carbon Dioxide 26 mmol/L (22.0-30.0); Creatinine Clearance Estimated 180 mL/min (50-200); Estimated Glomerular Filt Rate 117 ml/min (>60); GFR (African American) 142 ML/MIN (>60); Globulin 3.1 g/dL (1.3-3.2); Glucose 126 mg/dl (74-100); Total Protein,Serum 7.3 g/dl (6.3-8.2)
== END 2022-04-21 14:50 | disposition home or self-care (01) ==
LOC: INF 14:24
PROVIDERS: PCP Family Medicine
DX: C92.00 Acute myeloblastic leukemia, not having achieved remission (principal)
CPT/HCPCS: 36592; 80053; 85025

== ENCOUNTER 2022-04-23 13:54 | Outpatient (CLI) | payer BC, SELFPAY ==
[2022-04-23 13:59] VITALS: BMI 34.7
--- NOTE | 2022-04-23 14:05 | PC.NURSE ---
1405-collected labs via picc line;pt will wait for results.
[2022-04-23 14:20] LABS: Basophils % 0.8 % (0.1-2.0); Eosinophils # 0.2 K/mm3 (0.0-0.4); Eosinophils % 9.6 % (0.1-12.0); Hematocrit 38.9 % (42.0-52.0); Hemoglobin 12.7 g/dL (14.1-18.0); Lymphocytes # 0.5 K/mm3 (0.7-4.5); Lymphocytes % 20.8 % (10-50); Mean Corpuscular HGB Conc 32.6 g/dL (31.8-35.4); Mean Corpuscular Hemoglobin 31.4 pg (27.0-31.2); Mean Corpuscular Volume 96.2 fl (80-94); Mean Platelet Volume 8.8 fl (7.4-10.4); Monocytes # 0.1 K/mm3 (0.1-1.0); Monocytes % 3.2 % (1.7-9.3); Neutrophils # 1.4 K/mm3 (1.8-7.8); Neutrophils % 65.5 % (37.0-80.0); Platelet Count 90 K/mm3 (142-424); Red Blood Count 4.04 M/mm3 (4.60-6.20); Red Cell Distribution Width 17.2 % (11.5-17.5); White Blood Count 2.2 K/mm3 (4.8-10.8)
--- NOTE | 2022-04-23 14:24 | PC.NURSE ---
1424-[facility] ok per standing order pt ok to d/c home.
== END 2022-04-23 14:24 | disposition home or self-care (01) ==
LOC: INF 13:55
PROVIDERS: Internal Medicine Medical Oncology; PCP Family Medicine; Visit Provider Internal Medicine Medical Oncology
DX: C92.00 Acute myeloblastic leukemia, not having achieved remission (principal); D61.818 Other pancytopenia; Z45.2 Encounter for adjustment and management of vascular access device
CPT/HCPCS: 36592; 85025

== ENCOUNTER 2022-04-27 15:21 | Outpatient (CLI) | payer BC, SELFPAY ==
[2022-04-27 15:23] VITALS: BMI 34.7
[2022-04-27 15:42] LABS: Basophils % 2.2 % (0.1-2.0); Eosinophils # 0.2 K/mm3 (0.0-0.4); Eosinophils % 22.4 % (0.1-12.0); Hematocrit 36.8 % (42.0-52.0); Hemoglobin 12.2 g/dL (14.1-18.0); Lymphocytes # 0.4 K/mm3 (0.7-4.5); Lymphocytes % 39.9 % (10-50); Mean Corpuscular HGB Conc 33.2 g/dL (31.8-35.4); Mean Corpuscular Hemoglobin 31.4 pg (27.0-31.2); Mean Corpuscular Volume 94.5 fl (80-94); Mean Platelet Volume 8.5 fl (7.4-10.4); Monocytes % 2.7 % (1.7-9.3); Neutrophils # 0.3 K/mm3 (1.8-7.8); Neutrophils % 32.8 % (37.0-80.0); Platelet Count 150 K/mm3 (142-424); Red Cell Distribution Width 17.1 % (11.5-17.5)
[2022-04-27 15:46] LABS: Alanine Aminotransferase 26 U/L (12-78); Albumin Level 4.1 g/dl (3.5-5.0); Albumin/Globulin Ratio 1.3 (1.1-1.8); Alkaline Phosphatase 86 U/L (38-126); Anion Gap 16.6 mEq/L (5-15); Aspartate Amino Transferase 33 U/L (17-59); Blood Urea Nitrogen 10 mg/dl (9-20); Calcium 8.9 mg/dl (8.4-10.2); Carbon Dioxide 25 mmol/L (22.0-30.0); Chloride 103 mmol/L (98-107); Creatinine Clearance Estimated 180 mL/min (50-200); Estimated Glomerular Filt Rate 117 ml/min (>60); GFR (African American) 142 ML/MIN (>60); Globulin 3.2 g/dL (1.3-3.2); Glucose 131 mg/dl (74-100); Potassium 3.6 mmoL/L (3.5-5.1); Sodium 141 mmol/L (136-145); Total Protein,Serum 7.3 g/dl (6.3-8.2)
[2022-04-27 15:48] LABS: Bilirubin,Total 0.1 mg/dl (0.2-1.3)
[2022-04-27 15:51] LABS: MANUAL DIFFERENTIAL MANUAL DIFFERENTIAL (MANUAL DIFF)
--- NOTE | 2022-04-27 15:54 | PC.NURSE ---
Critical lab result called from Michelle Godoy. WBC of 1.0. Lab result, name and verified. MD aware, no new orders received.
[2022-04-27 16:14] LABS: Eosinophils % 8 % (0-3); Lymphocytes % 56 % (10-50); Neutrophils % 36 % (42-76); Platelet Estimate Slight Decrease; Stomatocytes 1+; Total Cells Counted 25
== END 2022-04-27 15:55 | disposition home or self-care (01) ==
LOC: INF 15:22
PROVIDERS: PCP Family Medicine; Visit Provider Internal Medicine Medical Oncology
DX: C92.00 Acute myeloblastic leukemia, not having achieved remission (principal); D61.818 Other pancytopenia; Z45.2 Encounter for adjustment and management of vascular access device
CPT/HCPCS: 36592; 80053; 85007; 85025

== ENCOUNTER 2022-04-29 15:10 | Outpatient (CLI) | payer BC, SELFPAY ==
[2022-04-29 15:19] VITALS: BMI 34.7
[2022-04-29 15:32] LABS: Basophils # 0.1 K/mm3 (0-0.2); Basophils % 5.6 % (0.1-2.0); Eosinophils # 0.2 K/mm3 (0.0-0.4); Eosinophils % 19.6 % (0.1-12.0); Hematocrit 38.3 % (42.0-52.0); Hemoglobin 12.2 g/dL (14.1-18.0); Lymphocytes # 0.5 K/mm3 (0.7-4.5); Lymphocytes % 47.3 % (10-50); Mean Corpuscular Hemoglobin 31.5 pg (27.0-31.2); Mean Corpuscular Volume 98.6 fl (80-94); Mean Platelet Volume 9.1 fl (7.4-10.4); Monocytes % 1.4 % (1.7-9.3); Neutrophils # 0.4 K/mm3 (1.8-7.8); Neutrophils % 31.8 % (37.0-80.0); Platelet Count 236 K/mm3 (142-424); Red Blood Count 3.88 M/mm3 (4.60-6.20); Red Cell Distribution Width 17.5 % (11.5-17.5); White Blood Count 1.1 K/mm3 (4.8-10.8)
[2022-04-29 15:50] LABS: Chloride 103 mmol/L (98-107)
[2022-04-29 15:51] LABS: Potassium 3.9 mmoL/L (3.5-5.1); Sodium 141 mmol/L (136-145)
[2022-04-29 15:53] LABS: Alanine Aminotransferase 23 U/L (12-78); Alkaline Phosphatase 83 U/L (38-126); Aspartate Amino Transferase 40 U/L (17-59); Blood Urea Nitrogen 8 mg/dl (9-20); Creatinine Clearance Estimated 210 mL/min (50-200); Estimated Glomerular Filt Rate 140 ml/min (>60); GFR (African American) 169 ML/MIN (>60)
[2022-04-29 15:54] LABS: Albumin Level 4.3 g/dl (3.5-5.0); Albumin/Globulin Ratio 1.3 (1.1-1.8); Anion Gap 13.9 mEq/L (5-15); Calcium 8.8 mg/dl (8.4-10.2); Carbon Dioxide 28 mmol/L (22.0-30.0); Globulin 3.2 g/dL (1.3-3.2); Glucose 103 mg/dl (74-100); Total Protein,Serum 7.5 g/dl (6.3-8.2)
[2022-04-29 16:00] LABS: Bilirubin,Total < 0.1 mg/dl (0.2-1.3)
== END 2022-04-29 15:41 | disposition home or self-care (01) ==
LOC: INF 15:11
PROVIDERS: PCP Family Medicine
DX: Z45.2 Encounter for adjustment and management of vascular access device (principal); C92.00 Acute myeloblastic leukemia, not having achieved remission
CPT/HCPCS: 36592; 80053; 85025

== ENCOUNTER 2022-05-01 15:00 | Outpatient (CLI) | payer BC, SELFPAY ==
[2022-05-01 15:04] VITALS: BMI 34.7
[2022-05-01 15:20] LABS: Basophils # 0.1 K/mm3 (0-0.2); Eosinophils # 0.2 K/mm3 (0.0-0.4); Eosinophils % 23.8 % (0.1-12.0); Hematocrit 38.7 % (42.0-52.0); Hemoglobin 12.7 g/dL (14.1-18.0); Lymphocytes # 0.5 K/mm3 (0.7-4.5); Lymphocytes % 51.7 % (10-50); Mean Corpuscular HGB Conc 32.9 g/dL (31.8-35.4); Mean Corpuscular Hemoglobin 31.3 pg (27.0-31.2); Mean Corpuscular Volume 95.1 fl (80-94); Mean Platelet Volume 8.2 fl (7.4-10.4); Monocytes % 2.8 % (1.7-9.3); Neutrophils # 0.2 K/mm3 (1.8-7.8); Neutrophils % 21.7 % (37.0-80.0); Platelet Count 315 K/mm3 (142-424); Red Blood Count 4.07 M/mm3 (4.60-6.20); Red Cell Distribution Width 17.1 % (11.5-17.5)
--- NOTE | 2022-05-01 15:23 | PC.NURSE ---
1523-carl christine called rn at 1523 to report wbc 1.0. rn repeated and verified pt name, , and lab value.result called to [facility] ok per standing order.
[2022-05-01 15:25] LABS: MANUAL DIFFERENTIAL MANUAL DIFFERENTIAL (MANUAL DIFF)
[2022-05-01 15:29] LABS: Chloride 102 mmol/L (98-107); Potassium 4.1 mmoL/L (3.5-5.1); Sodium 141 mmol/L (136-145)
[2022-05-01 15:31] LABS: Alanine Aminotransferase 23 U/L (12-78); Aspartate Amino Transferase 35 U/L (17-59); Blood Urea Nitrogen 9 mg/dl (9-20); Creatinine Clearance Estimated 180 mL/min (50-200); Estimated Glomerular Filt Rate 117 ml/min (>60); GFR (African American) 142 ML/MIN (>60)
[2022-05-01 15:32] LABS: Albumin Level 4.2 g/dl (3.5-5.0); Albumin/Globulin Ratio 1.4 (1.1-1.8); Alkaline Phosphatase 82 U/L (38-126); Anion Gap 14.1 mEq/L (5-15); Bilirubin,Total < 0.1 mg/dl (0.2-1.3); Calcium 9.1 mg/dl (8.4-10.2); Carbon Dioxide 29 mmol/L (22.0-30.0); Globulin 3.1 g/dL (1.3-3.2); Glucose 109 mg/dl (74-100); Total Protein,Serum 7.3 g/dl (6.3-8.2)
[2022-05-01 15:57] LABS: Eosinophils % 15 % (0-3); Lymphocytes % 55 % (10-50); Monocytes % 1 % (2-9); Neutrophils % 24 % (42-76); Total Cells Counted 100
[2022-05-01 15:58] LABS: Platelet Estimate Normal; RBC Morphology Normal
== END 2022-05-01 15:35 | disposition home or self-care (01) ==
LOC: INF 15:01
PROVIDERS: PCP Family Medicine
DX: Z45.2 Encounter for adjustment and management of vascular access device (principal); C92.10 Chronic myeloid leukemia, BCR/ABL-positive, not having achieved remission
CPT/HCPCS: 36592; 80053; 85007; 85025

== ENCOUNTER 2022-05-06 15:11 | Outpatient (CLI) | payer BC, SELFPAY ==
[2022-05-06 15:17] VITALS: BMI 34.7
[2022-05-06 15:31] LABS: Basophils # 0.1 K/mm3 (0-0.2); Basophils % 3.7 % (0.1-2.0); Eosinophils # 0.3 K/mm3 (0.0-0.4); Eosinophils % 24.1 % (0.1-12.0); Hematocrit 39.3 % (42.0-52.0); Hemoglobin 12.9 g/dL (14.1-18.0); Lymphocytes # 0.6 K/mm3 (0.7-4.5); Lymphocytes % 44.6 % (10-50); Mean Corpuscular HGB Conc 32.8 g/dL (31.8-35.4); Mean Corpuscular Hemoglobin 31.3 pg (27.0-31.2); Mean Corpuscular Volume 95.5 fl (80-94); Mean Platelet Volume 7.7 fl (7.4-10.4); Monocytes # 0.1 K/mm3 (0.1-1.0); Neutrophils # 0.3 K/mm3 (1.8-7.8); Neutrophils % 19.6 % (37.0-80.0); Platelet Count 338 K/mm3 (142-424); Red Blood Count 4.11 M/mm3 (4.60-6.20); Red Cell Distribution Width 16.9 % (11.5-17.5); White Blood Count 1.4 K/mm3 (4.8-10.8)
[2022-05-06 15:36] LABS: Chloride 104 mmol/L (98-107); Potassium 3.8 mmoL/L (3.5-5.1); Sodium 143 mmol/L (136-145)
[2022-05-06 15:39] LABS: Alanine Aminotransferase 22 U/L (12-78); Albumin Level 4.5 g/dl (3.5-5.0); Albumin/Globulin Ratio 1.5 (1.1-1.8); Alkaline Phosphatase 97 U/L (38-126); Anion Gap 12.8 mEq/L (5-15); Aspartate Amino Transferase 32 U/L (17-59); Blood Urea Nitrogen 11 mg/dl (9-20); Calcium 9.5 mg/dl (8.4-10.2); Carbon Dioxide 30 mmol/L (22.0-30.0); Creatinine Clearance Estimated 157 mL/min (50-200); Estimated Glomerular Filt Rate 100 ml/min (>60); GFR (African American) 121 ML/MIN (>60); Globulin 3.1 g/dL (1.3-3.2); Glucose 112 mg/dl (74-100); Total Protein,Serum 7.6 g/dl (6.3-8.2)
[2022-05-06 15:49] LABS: Bilirubin,Total < 0.1 mg/dl (0.2-1.3)
== END 2022-05-06 15:45 | disposition home or self-care (01) ==
LOC: INF 15:12
PROVIDERS: PCP Family Medicine
DX: Z45.2 Encounter for adjustment and management of vascular access device (principal); C92.00 Acute myeloblastic leukemia, not having achieved remission
CPT/HCPCS: 36592; 80053; 85025

== ENCOUNTER 2022-05-08 15:17 | Outpatient (CLI) | payer BC, SELFPAY ==
[2022-05-08 15:21] VITALS: BMI 34.7
[2022-05-08 15:34] LABS: Basophils # 0.1 K/mm3 (0-0.2); Basophils % 4.9 % (0.1-2.0); Eosinophils # 0.5 K/mm3 (0.0-0.4); Eosinophils % 27.2 % (0.1-12.0); Hematocrit 38.6 % (42.0-52.0); Hemoglobin 12.7 g/dL (14.1-18.0); Lymphocytes # 0.8 K/mm3 (0.7-4.5); Mean Corpuscular Hemoglobin 31.4 pg (27.0-31.2); Mean Corpuscular Volume 95.1 fl (80-94); Mean Platelet Volume 8.8 fl (7.4-10.4); Monocytes # 0.2 K/mm3 (0.1-1.0); Monocytes % 10.2 % (1.7-9.3); Neutrophils # 0.4 K/mm3 (1.8-7.8); Neutrophils % 19.6 % (37.0-80.0); Platelet Count 304 K/mm3 (142-424); Red Blood Count 4.06 M/mm3 (4.60-6.20); Red Cell Distribution Width 16.6 % (11.5-17.5); White Blood Count 1.8 K/mm3 (4.8-10.8)
[2022-05-08 15:39] LABS: Chloride 102 mmol/L (98-107); Potassium 3.8 mmoL/L (3.5-5.1); Sodium 142 mmol/L (136-145)
[2022-05-08 15:41] LABS: Blood Urea Nitrogen 11 mg/dl (9-20); Creatinine Clearance Estimated 157 mL/min (50-200); Estimated Glomerular Filt Rate 100 ml/min (>60); GFR (African American) 121 ML/MIN (>60)
[2022-05-08 15:42] LABS: Alanine Aminotransferase 22 U/L (12-78); Albumin Level 4.4 g/dl (3.5-5.0); Albumin/Globulin Ratio 1.4 (1.1-1.8); Alkaline Phosphatase 86 U/L (38-126); Anion Gap 13.8 mEq/L (5-15); Aspartate Amino Transferase 33 U/L (17-59); Bilirubin,Total < 0.1 mg/dl (0.2-1.3); Calcium 9.1 mg/dl (8.4-10.2); Carbon Dioxide 30 mmol/L (22.0-30.0); Globulin 3.1 g/dL (1.3-3.2); Glucose 138 mg/dl (74-100); Total Protein,Serum 7.5 g/dl (6.3-8.2)
== END 2022-05-08 15:45 | disposition home or self-care (01) ==
LOC: INF 15:18
PROVIDERS: PCP Family Medicine
DX: Z45.2 Encounter for adjustment and management of vascular access device (principal); C92.10 Chronic myeloid leukemia, BCR/ABL-positive, not having achieved remission
CPT/HCPCS: 36592; 80053; 85025

== ENCOUNTER 2022-05-11 11:57 | Outpatient (CLI) | payer BC, SELFPAY ==
[2022-05-11 12:01] VITALS: BMI 34.7
[2022-05-11 12:13] LABS: Basophils # 0.1 K/mm3 (0-0.2); Basophils % 3.4 % (0.1-2.0); Eosinophils # 0.5 K/mm3 (0.0-0.4); Eosinophils % 20.3 % (0.1-12.0); Hematocrit 40.5 % (42.0-52.0); Hemoglobin 13.5 g/dL (14.1-18.0); Lymphocytes # 0.8 K/mm3 (0.7-4.5); Lymphocytes % 30.7 % (10-50); Mean Corpuscular HGB Conc 33.4 g/dL (31.8-35.4); Mean Corpuscular Hemoglobin 31.7 pg (27.0-31.2); Mean Corpuscular Volume 94.8 fl (80-94); Mean Platelet Volume 8.4 fl (7.4-10.4); Monocytes # 0.4 K/mm3 (0.1-1.0); Neutrophils # 0.8 K/mm3 (1.8-7.8); Neutrophils % 31.8 % (37.0-80.0); Platelet Count 221 K/mm3 (142-424); Red Blood Count 4.27 M/mm3 (4.60-6.20); Red Cell Distribution Width 16.6 % (11.5-17.5); White Blood Count 2.6 K/mm3 (4.8-10.8)
[2022-05-11 12:19] LABS: Chloride 106 mmol/L (98-107); Potassium 3.7 mmoL/L (3.5-5.1); Sodium 144 mmol/L (136-145)
[2022-05-11 12:22] LABS: Alanine Aminotransferase 21 U/L (12-78); Albumin Level 4.3 g/dl (3.5-5.0); Albumin/Globulin Ratio 1.3 (1.1-1.8); Alkaline Phosphatase 81 U/L (38-126); Anion Gap 11.7 mEq/L (5-15); Aspartate Amino Transferase 33 U/L (17-59); Bilirubin,Total < 0.1 mg/dl (0.2-1.3); Blood Urea Nitrogen 9 mg/dl (9-20); Carbon Dioxide 30 mmol/L (22.0-30.0); Creatinine Clearance Estimated 157 mL/min (50-200); Estimated Glomerular Filt Rate 100 ml/min (>60); GFR (African American) 121 ML/MIN (>60); Globulin 3.2 g/dL (1.3-3.2); Total Protein,Serum 7.5 g/dl (6.3-8.2)
[2022-05-11 12:23] LABS: Glucose 112 mg/dl (74-100)
== END 2022-05-11 12:20 | disposition home or self-care (01) ==
LOC: INF 11:58
PROVIDERS: PCP Family Medicine
DX: Z45.2 Encounter for adjustment and management of vascular access device (principal); C92.10 Chronic myeloid leukemia, BCR/ABL-positive, not having achieved remission
CPT/HCPCS: 36592; 80053; 85025

== ENCOUNTER 2022-05-25 15:06 | Outpatient (CLI) | payer BC, SELFPAY ==
[2022-05-25 15:10] VITALS: BMI 34.7
[2022-05-25 15:22] LABS: Eosinophils # 0.3 K/mm3 (0.0-0.4); Eosinophils % 8.7 % (0.1-12.0); Hematocrit 36.2 % (42.0-52.0); Hemoglobin 12.4 g/dL (14.1-18.0); Lymphocytes # 0.6 K/mm3 (0.7-4.5); Lymphocytes % 14.6 % (10-50); Mean Corpuscular HGB Conc 34.3 g/dL (31.8-35.4); Mean Corpuscular Volume 93.4 fl (80-94); Mean Platelet Volume 7.7 fl (7.4-10.4); Monocytes # 0.3 K/mm3 (0.1-1.0); Monocytes % 7.5 % (1.7-9.3); Neutrophils # 2.7 K/mm3 (1.8-7.8); Neutrophils % 68.3 % (37.0-80.0); Platelet Count 188 K/mm3 (142-424); Red Blood Count 3.88 M/mm3 (4.60-6.20); Red Cell Distribution Width 17.1 % (11.5-17.5); White Blood Count 3.9 K/mm3 (4.8-10.8)
[2022-05-25 15:46] LABS: Alanine Aminotransferase 25 U/L (12-78); Albumin Level 4.3 g/dl (3.5-5.0); Albumin/Globulin Ratio 1.4 (1.1-1.8); Alkaline Phosphatase 85 U/L (38-126); Anion Gap 14.7 mEq/L (5-15); Aspartate Amino Transferase 36 U/L (17-59); Bilirubin,Total 0.3 mg/dl (0.2-1.3); Blood Urea Nitrogen 11 mg/dl (9-20); Calcium 8.9 mg/dl (8.4-10.2); Carbon Dioxide 28 mmol/L (22.0-30.0); Chloride 103 mmol/L (98-107); Creatinine Clearance Estimated 157 mL/min (50-200); Estimated Glomerular Filt Rate 100 ml/min (>60); GFR (African American) 121 ML/MIN (>60); Glucose 125 mg/dl (74-100); Potassium 3.7 mmoL/L (3.5-5.1); Sodium 142 mmol/L (136-145); Total Protein,Serum 7.3 g/dl (6.3-8.2)
== END 2022-05-25 15:30 | disposition home or self-care (01) ==
PROVIDERS: PCP Family Medicine
DX: Z45.2 Encounter for adjustment and management of vascular access device (principal); C95.00 Acute leukemia of unspecified cell type not having achieved remission
CPT/HCPCS: 36592; 80053; 85025

== ENCOUNTER 2022-05-28 15:40 | Outpatient (CLI) | payer BC, SELFPAY ==
[2022-05-28 15:54] VITALS: BMI 34.7
--- NOTE | 2022-05-28 16:03 | INFXCTL.NOTE ---
pt here today for blood to be obtained from picc. blood obtained from picc for labs and specimen sent to lab for analysis. pt reports rash and itching under picc line drsg. picc line drsg changed under sterile conditions per Yani Donato RN-standard lg tegaderm used to see if pt can tolerate this better.
[2022-05-28 16:13] LABS: Basophils % 0.8 % (0.1-2.0); Eosinophils # 0.3 K/mm3 (0.0-0.4); Eosinophils % 7.8 % (0.1-12.0); Lymphocytes # 0.5 K/mm3 (0.7-4.5); Lymphocytes % 12.5 % (10-50); Mean Corpuscular HGB Conc 33.4 g/dL (31.8-35.4); Mean Corpuscular Hemoglobin 30.9 pg (27.0-31.2); Mean Corpuscular Volume 92.5 fl (80-94); Mean Platelet Volume 8.3 fl (7.4-10.4); Monocytes # 0.2 K/mm3 (0.1-1.0); Monocytes % 4.2 % (1.7-9.3); Neutrophils # 2.9 K/mm3 (1.8-7.8); Neutrophils % 74.8 % (37.0-80.0); Platelet Count 156 K/mm3 (142-424); Red Blood Count 3.89 M/mm3 (4.60-6.20); White Blood Count 3.9 K/mm3 (4.8-10.8)
[2022-05-28 16:22] LABS: Alanine Aminotransferase 26 U/L (12-78); Albumin Level 4.1 g/dl (3.5-5.0); Albumin/Globulin Ratio 1.4 (1.1-1.8); Alkaline Phosphatase 86 U/L (38-126); Anion Gap 14.8 mEq/L (5-15); Aspartate Amino Transferase 31 U/L (17-59); Bilirubin,Total 0.2 mg/dl (0.2-1.3); Blood Urea Nitrogen 16 mg/dl (9-20); Calcium 9.1 mg/dl (8.4-10.2); Carbon Dioxide 28 mmol/L (22.0-30.0); Chloride 103 mmol/L (98-107); Creatinine Clearance Estimated 157 mL/min (50-200); Estimated Glomerular Filt Rate 100 ml/min (>60); GFR (African American) 121 ML/MIN (>60); Glucose 108 mg/dl (74-100); Potassium 3.8 mmoL/L (3.5-5.1); Sodium 142 mmol/L (136-145); Total Protein,Serum 7.1 g/dl (6.3-8.2)
== END 2022-05-28 16:37 | disposition home or self-care (01) ==
LOC: INF 15:42
PROVIDERS: PCP Family Medicine
DX: C95.00 Acute leukemia of unspecified cell type not having achieved remission (principal); Z45.2 Encounter for adjustment and management of vascular access device
CPT/HCPCS: 36592; 80053; 85025

== ENCOUNTER → 2022-06-01 15:44 | Outpatient (CLI) | payer BC, SELFPAY ==
[2022-06-01 15:48] VITALS: BMI 37.8
--- NOTE | 2022-06-01 15:57 | PC.NURSE ---
pt here for blood to be drawn for labs as ordered per . blood drawn from picc line per Janelle Merlos RN and specimen sent to lab for analysis, will await results of labs to determine poc. picc line howard braga.
[2022-06-01 16:03] LABS: Basophils % 0.6 % (0.1-2.0); Eosinophils # 0.3 K/mm3 (0.0-0.4); Eosinophils % 10.6 % (0.1-12.0); Hemoglobin 11.7 g/dL (14.1-18.0); Lymphocytes # 0.4 K/mm3 (0.7-4.5); Lymphocytes % 16.8 % (10-50); Mean Corpuscular HGB Conc 32.5 g/dL (31.8-35.4); Mean Corpuscular Hemoglobin 30.9 pg (27.0-31.2); Mean Corpuscular Volume 95.2 fl (80-94); Mean Platelet Volume 8.6 fl (7.4-10.4); Monocytes # 0.2 K/mm3 (0.1-1.0); Monocytes % 6.4 % (1.7-9.3); Neutrophils # 1.7 K/mm3 (1.8-7.8); Neutrophils % 65.7 % (37.0-80.0); Platelet Count 98 K/mm3 (142-424); Red Blood Count 3.78 M/mm3 (4.60-6.20); Red Cell Distribution Width 17.5 % (11.5-17.5); White Blood Count 2.6 K/mm3 (4.8-10.8)
[2022-06-01 16:14] LABS: Alanine Aminotransferase 27 U/L (12-78); Albumin Level 4.2 g/dl (3.5-5.0); Albumin/Globulin Ratio 1.5 (1.1-1.8); Alkaline Phosphatase 82 U/L (38-126); Anion Gap 15.6 mEq/L (5-15); Aspartate Amino Transferase 32 U/L (17-59); Bilirubin,Total 0.3 mg/dl (0.2-1.3); Blood Urea Nitrogen 12 mg/dl (9-20); Carbon Dioxide 28 mmol/L (22.0-30.0); Chloride 103 mmol/L (98-107); Creatinine Clearance Estimated 152 mL/min (50-200); Estimated Glomerular Filt Rate 88 ml/min (>60); GFR (African American) 106 ML/MIN (>60); Globulin 2.8 g/dL (1.3-3.2); Glucose 108 mg/dl (74-100); Potassium 3.6 mmoL/L (3.5-5.1); Sodium 143 mmol/L (136-145)
== END ==
PROVIDERS: PCP Family Medicine; Visit Provider Internal Medicine Medical Oncology
DX: Z45.2 Encounter for adjustment and management of vascular access device (principal); C95.00 Acute leukemia of unspecified cell type not having achieved remission
CPT/HCPCS: 36592; 80053; 85025

== ENCOUNTER 2022-06-04 15:51 | Outpatient (CLI) | payer BC, SELFPAY ==
[2022-06-04 15:57] VITALS: BMI 34.7
[2022-06-04 16:21] LABS: Basophils % 1.2 % (0.1-2.0); Eosinophils # 0.2 K/mm3 (0.0-0.4); Eosinophils % 8.2 % (0.1-12.0); Hematocrit 37.1 % (42.0-52.0); Hemoglobin 12.2 g/dL (14.1-18.0); Lymphocytes # 0.5 K/mm3 (0.7-4.5); Lymphocytes % 24.7 % (10-50); Mean Corpuscular HGB Conc 32.8 g/dL (31.8-35.4); Mean Corpuscular Hemoglobin 31.6 pg (27.0-31.2); Mean Corpuscular Volume 96.4 fl (80-94); Mean Platelet Volume 7.9 fl (7.4-10.4); Monocytes # 0.2 K/mm3 (0.1-1.0); Monocytes % 8.1 % (1.7-9.3); Neutrophils # 1.2 K/mm3 (1.8-7.8); Neutrophils % 57.9 % (37.0-80.0); Platelet Count 99 K/mm3 (142-424); Red Blood Count 3.85 M/mm3 (4.60-6.20); White Blood Count 2.1 K/mm3 (4.8-10.8)
[2022-06-04 16:29] LABS: Chloride 103 mmol/L (98-107); Potassium 3.8 mmoL/L (3.5-5.1); Sodium 140 mmol/L (136-145)
[2022-06-04 16:31] LABS: Alanine Aminotransferase 28 U/L (12-78); Aspartate Amino Transferase 36 U/L (17-59); Blood Urea Nitrogen 15 mg/dl (9-20); Creatinine Clearance Estimated 180 mL/min (50-200); Estimated Glomerular Filt Rate 117 ml/min (>60); GFR (African American) 142 ML/MIN (>60)
[2022-06-04 16:32] LABS: Albumin Level 4.5 g/dl (3.5-5.0); Albumin/Globulin Ratio 1.6 (1.1-1.8); Alkaline Phosphatase 81 U/L (38-126); Bilirubin,Total 0.3 mg/dl (0.2-1.3); Globulin 2.8 g/dL (1.3-3.2); Glucose 124 mg/dl (74-100); Total Protein,Serum 7.3 g/dl (6.3-8.2)
[2022-06-04 16:34] LABS: Anion Gap 13.8 mEq/L (5-15); Carbon Dioxide 27 mmol/L (22.0-30.0)
== END 2022-06-04 16:32 | disposition home or self-care (01) ==
LOC: INF 15:52
PROVIDERS: PCP Family Medicine; Visit Provider Internal Medicine Medical Oncology
DX: C95.00 Acute leukemia of unspecified cell type not having achieved remission (principal); Z45.2 Encounter for adjustment and management of vascular access device
CPT/HCPCS: 36592; 80053; 85025

== ENCOUNTER 2022-06-09 11:34 | Outpatient (CLI) | payer BC, SELFPAY ==
[2022-06-09 11:39] VITALS: BMI 34.7
[2022-06-09 11:54] LABS: Basophils # 0.1 K/mm3 (0-0.2); Basophils % 5.5 % (0.1-2.0); Eosinophils # 0.1 K/mm3 (0.0-0.4); Eosinophils % 6.3 % (0.1-12.0); Hematocrit 39.3 % (42.0-52.0); Hemoglobin 12.9 g/dL (14.1-18.0); Lymphocytes # 0.5 K/mm3 (0.7-4.5); Lymphocytes % 36.2 % (10-50); Mean Corpuscular HGB Conc 32.9 g/dL (31.8-35.4); Mean Corpuscular Hemoglobin 31.2 pg (27.0-31.2); Mean Platelet Volume 8.8 fl (7.4-10.4); Monocytes # 0.1 K/mm3 (0.1-1.0); Monocytes % 3.7 % (1.7-9.3); Neutrophils # 0.7 K/mm3 (1.8-7.8); Neutrophils % 53.7 % (37.0-80.0); Platelet Count 157 K/mm3 (142-424); Red Blood Count 4.14 M/mm3 (4.60-6.20); White Blood Count 1.3 K/mm3 (4.8-10.8)
[2022-06-09 12:08] LABS: Alanine Aminotransferase 28 U/L (12-78); Albumin Level 4.4 g/dl (3.5-5.0); Albumin/Globulin Ratio 1.6 (1.1-1.8); Alkaline Phosphatase 87 U/L (38-126); Aspartate Amino Transferase 33 U/L (17-59); Bilirubin,Total 0.2 mg/dl (0.2-1.3); Blood Urea Nitrogen 12 mg/dl (9-20); Calcium 9.6 mg/dl (8.4-10.2); Carbon Dioxide 27 mmol/L (22.0-30.0); Chloride 102 mmol/L (98-107); Creatinine Clearance Estimated 180 mL/min (50-200); Estimated Glomerular Filt Rate 117 ml/min (>60); GFR (African American) 142 ML/MIN (>60); Globulin 2.8 g/dL (1.3-3.2); Glucose 167 mg/dl (74-100); Sodium 137 mmol/L (136-145); Total Protein,Serum 7.2 g/dl (6.3-8.2)
== END 2022-06-09 12:15 | disposition home or self-care (01) ==
LOC: INF 11:36
PROVIDERS: PCP Family Medicine; Visit Provider Internal Medicine Medical Oncology
DX: C95.00 Acute leukemia of unspecified cell type not having achieved remission (principal); Z45.2 Encounter for adjustment and management of vascular access device
CPT/HCPCS: 36592; 80053; 85025

== ENCOUNTER 2022-06-11 15:13 | Outpatient (CLI) | payer BC, SELFPAY ==
[2022-06-11 15:17] VITALS: BMI 39.1
[2022-06-11 15:38] LABS: Basophils # 0.1 K/mm3 (0-0.2); Basophils % 7.6 % (0.1-2.0); Eosinophils # 0.1 K/mm3 (0.0-0.4); Eosinophils % 4.5 % (0.1-12.0); Hematocrit 39.1 % (42.0-52.0); Lymphocytes # 0.5 K/mm3 (0.7-4.5); Mean Corpuscular HGB Conc 33.1 g/dL (31.8-35.4); Mean Corpuscular Hemoglobin 31.7 pg (27.0-31.2); Mean Corpuscular Volume 95.6 fl (80-94); Mean Platelet Volume 8.2 fl (7.4-10.4); Monocytes % 2.8 % (1.7-9.3); Neutrophils # 0.8 K/mm3 (1.8-7.8); Neutrophils % 54.6 % (37.0-80.0); Platelet Count 224 K/mm3 (142-424); Red Blood Count 4.09 M/mm3 (4.60-6.20); White Blood Count 1.4 K/mm3 (4.8-10.8)
[2022-06-11 15:40] LABS: Chloride 101 mmol/L (98-107); Sodium 140 mmol/L (136-145)
[2022-06-11 15:41] LABS: Potassium 3.6 mmoL/L (3.5-5.1)
[2022-06-11 15:43] LABS: Alanine Aminotransferase 23 U/L (12-78); Albumin Level 4.3 g/dl (3.5-5.0); Albumin/Globulin Ratio 1.5 (1.1-1.8); Alkaline Phosphatase 75 U/L (38-126); Anion Gap 13.6 mEq/L (5-15); Aspartate Amino Transferase 32 U/L (17-59); Bilirubin,Total 0.3 mg/dl (0.2-1.3); Blood Urea Nitrogen 14 mg/dl (9-20); Calcium 9.6 mg/dl (8.4-10.2); Carbon Dioxide 29 mmol/L (22.0-30.0); Cholesterol 167 mg/dl (140-200); Creatinine Clearance Estimated 203 mL/min (50-200); Estimated Glomerular Filt Rate 117 ml/min (>60); GFR (African American) 142 ML/MIN (>60); Globulin 2.9 g/dL (1.3-3.2); Glucose 107 mg/dl (74-100); HDL Cholesterol 42 mg/dl (40-60); Total Protein,Serum 7.2 g/dl (6.3-8.2); Triglycerides 177 mg/dl (30-150); VLDL Cholesterol 35 mg/dL (0-40)
[2022-06-11 15:54] LABS: NT Pro Brain Natriuretic Pep. 650 pg/mL (0-125)
[2022-06-11 16:13] LABS: Free T4 (Free Thyroxine) 0.81 ng/dl (0.78-2.19)
[2022-06-11 16:16] LABS: Thyroid Stimulating Hormone 1.31 uIU/mL (0.465-4.68)
== END 2022-06-11 15:41 | disposition home or self-care (01) ==
LOC: INF 15:14
PROVIDERS: Internal Medicine Cardiovascular Disease; PCP Family Medicine; Visit Provider Internal Medicine Medical Oncology
DX: Z45.2 Encounter for adjustment and management of vascular access device (principal); R06.02 Shortness of breath; C95.00 Acute leukemia of unspecified cell type not having achieved remission; I48.91 Unspecified atrial fibrillation; I48.92 Unspecified atrial flutter; I42.9 Cardiomyopathy, unspecified
CPT/HCPCS: 36592; 80053; 80061; 83880; 84439; 84443; 85025

== ENCOUNTER 2022-06-15 13:36 | Outpatient (CLI) | payer BC, SELFPAY ==
[2022-06-15 13:43] VITALS: BMI 36.9
[2022-06-15 14:18] LABS: Alanine Aminotransferase 23 U/L (12-78); Albumin Level 4.2 g/dl (3.5-5.0); Albumin/Globulin Ratio 1.6 (1.1-1.8); Alkaline Phosphatase 84 U/L (38-126); Anion Gap 8.9 mEq/L (5-15); Aspartate Amino Transferase 28 U/L (17-59); Bilirubin,Total 0.3 mg/dl (0.2-1.3); Blood Urea Nitrogen 12 mg/dl (9-20); Calcium 9.3 mg/dl (8.4-10.2); Carbon Dioxide 28 mmol/L (22.0-30.0); Chloride 102 mmol/L (98-107); Creatinine Clearance Estimated 167 mL/min (50-200); Estimated Glomerular Filt Rate 100 ml/min (>60); GFR (African American) 121 ML/MIN (>60); Globulin 2.6 g/dL (1.3-3.2); Glucose 113 mg/dl (74-100); Potassium 3.9 mmoL/L (3.5-5.1); Sodium 135 mmol/L (136-145); Total Protein,Serum 6.8 g/dl (6.3-8.2)
[2022-06-15 14:42] LABS: Basophils # 0.1 K/mm3 (0-0.2); Basophils % 9.8 % (0.1-2.0); Eosinophils # 0.1 K/mm3 (0.0-0.4); Eosinophils % 4.4 % (0.1-12.0); Hematocrit 37.1 % (42.0-52.0); Hemoglobin 12.3 g/dL (14.1-18.0); Lymphocytes # 0.7 K/mm3 (0.7-4.5); Mean Corpuscular HGB Conc 33.1 g/dL (31.8-35.4); Mean Corpuscular Hemoglobin 31.2 pg (27.0-31.2); Mean Corpuscular Volume 94.5 fl (80-94); Mean Platelet Volume 7.9 fl (7.4-10.4); Monocytes # 0.1 K/mm3 (0.1-1.0); Monocytes % 10.1 % (1.7-9.3); Neutrophils # 0.5 K/mm3 (1.8-7.8); Neutrophils % 33.5 % (37.0-80.0); Platelet Count 299 K/mm3 (142-424); Red Blood Count 3.93 M/mm3 (4.60-6.20); Red Cell Distribution Width 17.8 % (11.5-17.5); White Blood Count 1.4 K/mm3 (4.8-10.8)
[2022-06-15 14:46] LABS: MANUAL DIFFERENTIAL MANUAL DIFFERENTIAL (MANUAL DIFF)
[2022-06-15 15:15] LABS: Eosinophils % 12 % (0-3); Lymphocytes % 32 % (10-50); Monocytes % 16 % (2-9); Neutrophils % 36 % (42-76); Total Cells Counted 25
[2022-06-15 15:16] LABS: Platelet Estimate Normal; Tear Drop Cells 1+
== END 2022-06-15 14:40 | disposition home or self-care (01) ==
LOC: INF 13:37
PROVIDERS: PCP Family Medicine; Visit Provider Internal Medicine Medical Oncology
DX: C95.00 Acute leukemia of unspecified cell type not having achieved remission (principal); Z45.2 Encounter for adjustment and management of vascular access device
CPT/HCPCS: 36592; 80053; 85007; 85025

== ENCOUNTER 2022-06-18 14:45 | Outpatient (CLI) | payer BC, SELFPAY ==
[2022-06-18 14:49] VITALS: BMI 40.3
[2022-06-18 15:08] LABS: Basophils # 0.1 K/mm3 (0-0.2); Basophils % 7.7 % (0.1-2.0); Eosinophils % 3.1 % (0.1-12.0); Hematocrit 40.3 % (42.0-52.0); Lymphocytes # 0.4 K/mm3 (0.7-4.5); Lymphocytes % 32.9 % (10-50); Mean Corpuscular HGB Conc 32.3 g/dL (31.8-35.4); Mean Corpuscular Hemoglobin 30.9 pg (27.0-31.2); Mean Corpuscular Volume 95.5 fl (80-94); Mean Platelet Volume 8.3 fl (7.4-10.4); Monocytes # 0.2 K/mm3 (0.1-1.0); Monocytes % 15.3 % (1.7-9.3); Neutrophils # 0.7 K/mm3 (1.8-7.8); Neutrophils % 48.6 % (37.0-80.0); Platelet Count 294 K/mm3 (142-424); Red Blood Count 4.22 M/mm3 (4.60-6.20); Red Cell Distribution Width 17.7 % (11.5-17.5); White Blood Count 1.4 K/mm3 (4.8-10.8)
[2022-06-18 15:15] LABS: Alanine Aminotransferase 27 U/L (12-78); Albumin Level 4.5 g/dl (3.5-5.0); Albumin/Globulin Ratio 1.5 (1.1-1.8); Alkaline Phosphatase 81 U/L (38-126); Anion Gap 16.6 mEq/L (5-15); Aspartate Amino Transferase 31 U/L (17-59); Bilirubin,Total 0.2 mg/dl (0.2-1.3); Blood Urea Nitrogen 10 mg/dl (9-20); Calcium 9.5 mg/dl (8.4-10.2); Carbon Dioxide 26 mmol/L (22.0-30.0); Chloride 101 mmol/L (98-107); Creatinine Clearance Estimated 178 mL/min (50-200); Estimated Glomerular Filt Rate 100 ml/min (>60); GFR (African American) 121 ML/MIN (>60); Glucose 126 mg/dl (74-100); Potassium 3.6 mmoL/L (3.5-5.1); Sodium 140 mmol/L (136-145); Total Protein,Serum 7.5 g/dl (6.3-8.2)
[2022-06-18 17:58] LABS: Adenovirus,PCR Not Detected (NotDetected); Bordetella Pertussis Not Detected (NotDetected); Chlamydophila Pneumoniae, PCR Not Detected (NotDetected); Coronavirus 19, PCR Not Detected (NotDetected); Coronavirus 229E Not Detected (NotDetected); Coronavirus NL63 Not Detected (NotDetected); Coronavirus OC43 Not Detected (NotDetected); Coronovirus HKU1,PCR Not Detected (NotDetected); Human Metapneumovirus Not Detected (NotDetected); Influenza A, PCR Not Detected (NotDetected); Influenza AH1, PCR Not Detected (NotDetected); Influenza AH3,PCR Not Detected (NotDetected); Influenza B, PCR Not Detected (NotDetected); Mycoplasma Pneumoniae, PCR Not Detected (NotDetected); Parainfluenza 1, PCR Not Detected (NotDetected); Parainfluenza 2, PCR Not Detected (NotDetected); Parainfluenza 3, PCR Not Detected (NotDetected); Parainfluenza 4, PCR Not Detected (NotDetected); Respiratory Syncytial Virus Not Detected (NotDetected); Rhinovirus/Enterovirus Not Detected (NotDetected)
[2022-06-18 18:09] LABS: Basophils # 0.1 K/mm3 (0-0.2); Basophils % 6.1 % (0.1-2.0); Eosinophils % 2.7 % (0.1-12.0); Hematocrit 40.1 % (42.0-52.0); Hemoglobin 13.1 g/dL (14.1-18.0); Lymphocytes # 0.4 K/mm3 (0.7-4.5); Lymphocytes % 28.6 % (10-50); Mean Corpuscular HGB Conc 32.7 g/dL (31.8-35.4); Mean Platelet Volume 8.1 fl (7.4-10.4); Monocytes # 0.3 K/mm3 (0.1-1.0); Monocytes % 22.2 % (1.7-9.3); Neutrophils # 0.6 K/mm3 (1.8-7.8); Neutrophils % 46.5 % (37.0-80.0); Platelet Count 278 K/mm3 (142-424); Red Blood Count 4.22 M/mm3 (4.60-6.20); Red Cell Distribution Width 17.9 % (11.5-17.5); White Blood Count 1.4 K/mm3 (4.8-10.8)
[2022-06-18 18:10] LABS: MANUAL DIFFERENTIAL MANUAL DIFFERENTIAL (MANUAL DIFF)
[2022-06-18 19:30] LABS: Lymphocytes % 19 % (10-50); Monocytes % 22 % (2-9); Neutrophils % 59 % (42-76); Total Cells Counted 100
[2022-06-18 19:31] LABS: Anisocytosis 1+; Macrocytosis 1+; Platelet Estimate Normal
[2022-06-19 11:58] LABS: Influenza AH1, 2009 Detected (NotDetected)
== END 2022-06-18 15:17 | disposition home or self-care (01) ==
LOC: INF 14:46
PROVIDERS: PCP Family Medicine; Visit Provider Internal Medicine Medical Oncology
DX: Z20.822 Contact with and (suspected) exposure to COVID-19 (principal); J09.X2 Influenza due to identified novel influenza A virus with other respiratory manifestations
CPT/HCPCS: 36592; 80053; 85007; 85025; 87581; 87632; 87798; C9803; U0003; U0005

== ENCOUNTER 2022-06-25 15:18 | Outpatient (CLI) | payer BC, SELFPAY ==
[2022-06-25 15:23] VITALS: BMI 34.7
[2022-06-25 15:36] LABS: Eosinophils # 0.1 K/mm3 (0.0-0.4); Eosinophils % 3.5 % (0.1-12.0); Hematocrit 39.9 % (42.0-52.0); Hemoglobin 12.9 g/dL (14.1-18.0); Lymphocytes # 0.8 K/mm3 (0.7-4.5); Lymphocytes % 21.8 % (10-50); Mean Corpuscular HGB Conc 32.2 g/dL (31.8-35.4); Mean Corpuscular Hemoglobin 30.6 pg (27.0-31.2); Mean Corpuscular Volume 95.1 fl (80-94); Mean Platelet Volume 7.8 fl (7.4-10.4); Monocytes # 0.5 K/mm3 (0.1-1.0); Neutrophils # 2.3 K/mm3 (1.8-7.8); Neutrophils % 61.7 % (37.0-80.0); Platelet Count 189 K/mm3 (142-424); Red Blood Count 4.19 M/mm3 (4.60-6.20); Red Cell Distribution Width 16.4 % (11.5-17.5); White Blood Count 3.8 K/mm3 (4.8-10.8)
[2022-06-25 15:44] LABS: Chloride 102 mmol/L (98-107); Sodium 142 mmol/L (136-145)
[2022-06-25 15:46] LABS: Blood Urea Nitrogen 13 mg/dl (9-20); Creatinine Clearance Estimated 180 mL/min (50-200); Estimated Glomerular Filt Rate 117 ml/min (>60); GFR (African American) 142 ML/MIN (>60)
[2022-06-25 15:47] LABS: Alanine Aminotransferase 28 U/L (12-78); Albumin Level 4.5 g/dl (3.5-5.0); Albumin/Globulin Ratio 1.5 (1.1-1.8); Alkaline Phosphatase 83 U/L (38-126); Aspartate Amino Transferase 40 U/L (17-59); Bilirubin,Total 0.3 mg/dl (0.2-1.3); Calcium 9.9 mg/dl (8.4-10.2); Carbon Dioxide 29 mmol/L (22.0-30.0); Globulin 3.1 g/dL (1.3-3.2); Glucose 95 mg/dl (74-100); Total Protein,Serum 7.6 g/dl (6.3-8.2)
== END 2022-06-25 15:53 | disposition home or self-care (01) ==
LOC: INF 15:19
PROVIDERS: PCP Family Medicine; Visit Provider Internal Medicine Medical Oncology
DX: C95.00 Acute leukemia of unspecified cell type not having achieved remission (principal)
CPT/HCPCS: 36592; 80053; 85025

== ENCOUNTER 2022-06-29 08:43 | Outpatient (CLI) | payer BC, SELFPAY ==
[2022-06-29 09:20] VITALS: BP 129/61; PULSE 50; RESP 18; TEMP 36.3; O2SAT 97
[2022-06-29 09:35] VITALS: BP 131/62; PULSE 51; RESP 18; TEMP 36.3; O2SAT 97
[2022-06-29 09:50] VITALS: BP 136/63; PULSE 49; RESP 18; O2SAT 97
[2022-06-29 10:21] VITALS: BP 122/68; PULSE 51; RESP 18; TEMP 36.3; O2SAT 97
== END 2022-06-29 10:30 | disposition home or self-care (01) ==
LOC: INF 08:43
PROVIDERS: PCP Family Medicine; Visit Provider Internal Medicine Medical Oncology
DX: C92.00 Acute myeloblastic leukemia, not having achieved remission (principal)
CPT/HCPCS: 96413; J0894

== ENCOUNTER 2022-06-30 08:13 | Outpatient (CLI) | payer BC, SELFPAY ==
[2022-06-30 08:50] VITALS: BP 121/57; PULSE 51; RESP 18; TEMP 36.3; O2SAT 98
[2022-06-30 09:05] VITALS: BP 110/46; PULSE 50; RESP 18; O2SAT 98
[2022-06-30 09:20] VITALS: BP 125/70; PULSE 52; RESP 18; TEMP 36.3; O2SAT 98
[2022-06-30 09:35] VITALS: BP 112/46; PULSE 51; RESP 18; O2SAT 98
[2022-06-30 09:53] VITALS: BP 127/60; PULSE 49; RESP 18; TEMP 36.3; O2SAT 98
== END 2022-06-30 10:00 | disposition home or self-care (01) ==
LOC: INF 08:14
PROVIDERS: PCP Family Medicine; Visit Provider Internal Medicine Medical Oncology
DX: Z51.11 Encounter for antineoplastic chemotherapy (principal); C92.00 Acute myeloblastic leukemia, not having achieved remission
CPT/HCPCS: 96413; J0894

== ENCOUNTER 2022-07-01 08:16 | Outpatient (CLI) | payer BC, SELFPAY ==
[2022-07-01 08:43] VITALS: BP 127/63; PULSE 53; RESP 18; TEMP 36.4; O2SAT 99
[2022-07-01 09:13] VITALS: BP 123/69; PULSE 51; RESP 18; O2SAT 98
[2022-07-01 09:52] VITALS: BP 120/63; PULSE 49; RESP 18; O2SAT 98
== END 2022-07-01 10:17 | disposition home or self-care (01) ==
LOC: INF 08:17
PROVIDERS: PCP Family Medicine; Visit Provider Internal Medicine Medical Oncology
DX: C92.00 Acute myeloblastic leukemia, not having achieved remission (principal)
CPT/HCPCS: 96413; J0894

== ENCOUNTER 2022-07-03 07:53 | Outpatient (CLI) | payer BC, SELFPAY ==
[2022-07-03 08:40] VITALS: BP 109/47; PULSE 57; RESP 20; TEMP 36.9; O2SAT 95
[2022-07-03 09:10] VITALS: BP 117/43; PULSE 68; RESP 20; O2SAT 97
[2022-07-03 09:53] VITALS: BP 112/50; PULSE 68; RESP 20; TEMP 36.7; O2SAT 95
== END 2022-07-03 09:59 | disposition home or self-care (01) ==
LOC: INF 07:53
PROVIDERS: PCP Family Medicine; Visit Provider Internal Medicine Medical Oncology
DX: Z51.11 Encounter for antineoplastic chemotherapy (principal); C92.00 Acute myeloblastic leukemia, not having achieved remission
CPT/HCPCS: 96413; J0894

== ENCOUNTER 2022-07-07 08:51 | Outpatient (CLI) | payer BC, SELFPAY ==
[2022-07-07 08:51] VITALS: BMI 34.7
[2022-07-07 09:05] LABS: Basophils % 0.9 % (0.1-2.0); Eosinophils # 0.1 K/mm3 (0.0-0.4); Eosinophils % 2.7 % (0.1-12.0); Hematocrit 38.1 % (42.0-52.0); Hemoglobin 12.9 g/dL (14.1-18.0); Lymphocytes # 0.5 K/mm3 (0.7-4.5); Lymphocytes % 11.6 % (10-50); Mean Corpuscular HGB Conc 33.8 g/dL (31.8-35.4); Mean Corpuscular Volume 94.6 fl (80-94); Mean Platelet Volume 8.6 fl (7.4-10.4); Monocytes # 0.2 K/mm3 (0.1-1.0); Monocytes % 5.1 % (1.7-9.3); Neutrophils # 3.3 K/mm3 (1.8-7.8); Neutrophils % 79.7 % (37.0-80.0); Platelet Count 166 K/mm3 (142-424); Red Blood Count 4.03 M/mm3 (4.60-6.20); Red Cell Distribution Width 17.4 % (11.5-17.5); White Blood Count 4.2 K/mm3 (4.8-10.8)
[2022-07-07 09:10] LABS: Chloride 106 mmol/L (98-107); Sodium 141 mmol/L (136-145)
[2022-07-07 09:12] LABS: Alanine Aminotransferase 30 U/L (12-78); Alkaline Phosphatase 78 U/L (38-126); Aspartate Amino Transferase 36 U/L (17-59); Bilirubin,Total 0.6 mg/dl (0.2-1.3); Blood Urea Nitrogen 13 mg/dl (9-20); Carbon Dioxide 26 mmol/L (22.0-30.0); Creatinine Clearance Estimated 157 mL/min (50-200); Estimated Glomerular Filt Rate 100 ml/min (>60); GFR (African American) 121 ML/MIN (>60)
[2022-07-07 09:13] LABS: Albumin Level 4.4 g/dl (3.5-5.0); Albumin/Globulin Ratio 1.5 (1.1-1.8); Calcium 9.4 mg/dl (8.4-10.2); Glucose 113 mg/dl (74-100); Total Protein,Serum 7.4 g/dl (6.3-8.2)
== END 2022-07-07 09:15 | disposition home or self-care (01) ==
LOC: INF 08:52
PROVIDERS: PCP Family Medicine; Visit Provider Internal Medicine Medical Oncology
DX: C95.00 Acute leukemia of unspecified cell type not having achieved remission (principal); Z45.2 Encounter for adjustment and management of vascular access device
CPT/HCPCS: 36592; 80053; 85025

== ENCOUNTER 2022-07-14 15:31 | Outpatient (CLI) | payer BC, SELFPAY ==
[2022-07-14 15:36] VITALS: BMI 34.7
[2022-07-14 16:02] LABS: Basophils % 0.3 % (0.1-2.0); Eosinophils # 0.1 K/mm3 (0.0-0.4); Eosinophils % 1.7 % (0.1-12.0); Hematocrit 35.5 % (42.0-52.0); Hemoglobin 11.8 g/dL (14.1-18.0); Lymphocytes # 0.4 K/mm3 (0.7-4.5); Mean Corpuscular HGB Conc 33.3 g/dL (31.8-35.4); Mean Corpuscular Hemoglobin 31.6 pg (27.0-31.2); Mean Corpuscular Volume 94.8 fl (80-94); Mean Platelet Volume 8.9 fl (7.4-10.4); Monocytes # 0.3 K/mm3 (0.1-1.0); Monocytes % 10.9 % (1.7-9.3); Neutrophils # 1.8 K/mm3 (1.8-7.8); Neutrophils % 70.1 % (37.0-80.0); Platelet Count 86 K/mm3 (142-424); Red Blood Count 3.74 M/mm3 (4.60-6.20); White Blood Count 2.6 K/mm3 (4.8-10.8)
[2022-07-14 16:52] LABS: Chloride 104 mmol/L (98-107); Potassium 3.6 mmoL/L (3.5-5.1); Sodium 136 mmol/L (136-145)
[2022-07-14 16:54] LABS: Alanine Aminotransferase 28 U/L (12-78); Aspartate Amino Transferase 35 U/L (17-59); Blood Urea Nitrogen 13 mg/dl (9-20); Creatinine Clearance Estimated 126 mL/min (50-200); Estimated Glomerular Filt Rate 78 ml/min (>60); GFR (African American) 94 ML/MIN (>60)
[2022-07-14 16:55] LABS: Albumin Level 4.4 g/dl (3.5-5.0); Albumin/Globulin Ratio 1.6 (1.1-1.8); Alkaline Phosphatase 83 U/L (38-126); Anion Gap 6.6 mEq/L (5-15); Bilirubin,Total 0.5 mg/dl (0.2-1.3); Calcium 9.6 mg/dl (8.4-10.2); Carbon Dioxide 29 mmol/L (22.0-30.0); Globulin 2.8 g/dL (1.3-3.2); Glucose 107 mg/dl (74-100); Total Protein,Serum 7.2 g/dl (6.3-8.2)
== END 2022-07-14 16:15 | disposition home or self-care (01) ==
LOC: INF 15:32
PROVIDERS: PCP Family Medicine; Visit Provider Internal Medicine Medical Oncology
DX: Z45.2 Encounter for adjustment and management of vascular access device (principal); C95.00 Acute leukemia of unspecified cell type not having achieved remission
CPT/HCPCS: 36592; 80053; 85025

== ENCOUNTER 2022-07-21 08:52 | Outpatient (CLI) | payer BC, SELFPAY ==
[2022-07-21 08:57] VITALS: BMI 34.7
[2022-07-21 09:25] LABS: Chloride 106 mmol/L (98-107); Sodium 141 mmol/L (136-145)
[2022-07-21 09:26] LABS: Potassium 4.3 mmoL/L (3.5-5.1)
[2022-07-21 09:28] LABS: Alanine Aminotransferase 25 U/L (12-78); Alkaline Phosphatase 76 U/L (38-126); Anion Gap 11.3 mEq/L (5-15); Aspartate Amino Transferase 32 U/L (17-59); Bilirubin,Total 0.4 mg/dl (0.2-1.3); Blood Urea Nitrogen 11 mg/dl (9-20); Carbon Dioxide 28 mmol/L (22.0-30.0); Creatinine Clearance Estimated 140 mL/min (50-200); Estimated Glomerular Filt Rate 88 ml/min (>60); GFR (African American) 106 ML/MIN (>60)
[2022-07-21 09:29] LABS: Albumin Level 4.4 g/dl (3.5-5.0); Albumin/Globulin Ratio 1.6 (1.1-1.8); Basophils # 0.1 K/mm3 (0-0.2); Basophils % 3.9 % (0.1-2.0); Calcium 9.5 mg/dl (8.4-10.2); Eosinophils % 2.3 % (0.1-12.0); Globulin 2.8 g/dL (1.3-3.2); Glucose 96 mg/dl (74-100); Hematocrit 38.6 % (42.0-52.0); Hemoglobin 12.8 g/dL (14.1-18.0); Lymphocytes # 0.3 K/mm3 (0.7-4.5); Lymphocytes % 25.8 % (10-50); Mean Corpuscular HGB Conc 33.3 g/dL (31.8-35.4); Mean Corpuscular Hemoglobin 32.7 pg (27.0-31.2); Mean Platelet Volume 8.4 fl (7.4-10.4); Monocytes # 0.1 K/mm3 (0.1-1.0); Monocytes % 5.1 % (1.7-9.3); Neutrophils # 0.8 K/mm3 (1.8-7.8); Neutrophils % 62.9 % (37.0-80.0); Platelet Count 181 K/mm3 (142-424); Red Blood Count 3.93 M/mm3 (4.60-6.20); Red Cell Distribution Width 19.4 % (11.5-17.5); Total Protein,Serum 7.2 g/dl (6.3-8.2)
[2022-07-21 09:30] LABS: White Blood Count 1.2 K/mm3 (4.8-10.8)
== END 2022-07-21 09:10 | disposition home or self-care (01) ==
LOC: INF 08:53
PROVIDERS: PCP Family Medicine; Visit Provider Internal Medicine Medical Oncology
DX: C95.00 Acute leukemia of unspecified cell type not having achieved remission (principal); Z45.2 Encounter for adjustment and management of vascular access device
CPT/HCPCS: 36592; 80053; 85025

== ENCOUNTER 2022-07-27 12:38 | Outpatient (CLI) | payer BC, SELFPAY ==
[2022-07-27 12:45] VITALS: BMI 34.7
[2022-07-27 13:10] LABS: Basophils # 0.1 K/mm3 (0-0.2); Basophils % 6.1 % (0.1-2.0); Eosinophils % 1.1 % (0.1-12.0); Hematocrit 38.5 % (42.0-52.0); Lymphocytes # 0.6 K/mm3 (0.7-4.5); Lymphocytes % 32.5 % (10-50); Mean Corpuscular HGB Conc 33.8 g/dL (31.8-35.4); Mean Corpuscular Volume 97.6 fl (80-94); Mean Platelet Volume 8.1 fl (7.4-10.4); Monocytes # 0.1 K/mm3 (0.1-1.0); Neutrophils # 1.1 K/mm3 (1.8-7.8); Neutrophils % 61.5 % (37.0-80.0); Platelet Count 329 K/mm3 (142-424); Red Blood Count 3.94 M/mm3 (4.60-6.20); Red Cell Distribution Width 18.2 % (11.5-17.5); White Blood Count 1.8 K/mm3 (4.8-10.8)
[2022-07-27 13:17] LABS: Chloride 104 mmol/L (98-107); Sodium 139 mmol/L (136-145)
[2022-07-27 13:20] LABS: Alanine Aminotransferase 24 U/L (12-78); Albumin Level 4.4 g/dl (3.5-5.0); Albumin/Globulin Ratio 1.5 (1.1-1.8); Alkaline Phosphatase 80 U/L (38-126); Aspartate Amino Transferase 30 U/L (17-59); Bilirubin,Total 0.6 mg/dl (0.2-1.3); Blood Urea Nitrogen 13 mg/dl (9-20); Calcium 9.5 mg/dl (8.4-10.2); Carbon Dioxide 30 mmol/L (22.0-30.0); Creatinine Clearance Estimated 140 mL/min (50-200); Estimated Glomerular Filt Rate 88 ml/min (>60); GFR (African American) 106 ML/MIN (>60); Globulin 2.9 g/dL (1.3-3.2); Glucose 95 mg/dl (74-100); Total Protein,Serum 7.3 g/dl (6.3-8.2)
== END 2022-07-27 13:20 | disposition home or self-care (01) ==
LOC: INF 12:38
PROVIDERS: PCP Family Medicine; Visit Provider Internal Medicine Medical Oncology
DX: Z45.2 Encounter for adjustment and management of vascular access device (principal); C95.00 Acute leukemia of unspecified cell type not having achieved remission
CPT/HCPCS: 36592; 80053; 85025

== ENCOUNTER 2022-07-31 09:47 | Outpatient (CLI) | payer BC, SELFPAY ==
[2022-07-31 09:52] VITALS: BMI 34.7
[2022-07-31 10:15] LABS: Chloride 108 mmol/L (98-107); Sodium 142 mmol/L (136-145)
[2022-07-31 10:16] LABS: Basophils # 0.1 K/mm3 (0-0.2); Basophils % 5.5 % (0.1-2.0); Hematocrit 40.9 % (42.0-52.0); Hemoglobin 13.2 g/dL (14.1-18.0); Lymphocytes # 0.7 K/mm3 (0.7-4.5); Lymphocytes % 35.2 % (10-50); Mean Corpuscular HGB Conc 32.2 g/dL (31.8-35.4); Mean Corpuscular Hemoglobin 32.5 pg (27.0-31.2); Mean Corpuscular Volume 100.9 fl (80-94); Monocytes # 0.2 K/mm3 (0.1-1.0); Monocytes % 11.5 % (1.7-9.3); Neutrophils # 1.1 K/mm3 (1.8-7.8); Neutrophils % 51.3 % (37.0-80.0); Platelet Count 305 K/mm3 (142-424); Potassium 3.6 mmoL/L (3.5-5.1); Red Blood Count 4.05 M/mm3 (4.60-6.20); Red Cell Distribution Width 17.8 % (11.5-17.5)
[2022-07-31 10:18] LABS: Alanine Aminotransferase 24 U/L (12-78); Albumin Level 4.3 g/dl (3.5-5.0); Albumin/Globulin Ratio 1.6 (1.1-1.8); Alkaline Phosphatase 80 U/L (38-126); Anion Gap 11.6 mEq/L (5-15); Aspartate Amino Transferase 28 U/L (17-59); Bilirubin,Total 0.3 mg/dl (0.2-1.3); Blood Urea Nitrogen 9 mg/dl (9-20); Carbon Dioxide 26 mmol/L (22.0-30.0); Creatinine Clearance Estimated 140 mL/min (50-200); Estimated Glomerular Filt Rate 88 ml/min (>60); GFR (African American) 106 ML/MIN (>60); Globulin 2.7 g/dL (1.3-3.2)
[2022-07-31 10:19] LABS: Calcium 9.3 mg/dl (8.4-10.2); Glucose 105 mg/dl (74-100)
== END 2022-07-31 10:15 | disposition home or self-care (01) ==
LOC: INF 09:48
PROVIDERS: PCP Family Medicine; Visit Provider Internal Medicine Medical Oncology
DX: Z45.2 Encounter for adjustment and management of vascular access device (principal); C95.00 Acute leukemia of unspecified cell type not having achieved remission
CPT/HCPCS: 36592; 80053; 85025

== ENCOUNTER 2022-08-06 10:08 | Outpatient (CLI) | payer BC, SELFPAY ==
[2022-08-06 10:13] VITALS: BMI 37.6
[2022-08-06 10:35] LABS: Basophils # 0.1 K/mm3 (0-0.2); Basophils % 2.2 % (0.1-2.0); Eosinophils # 0.1 K/mm3 (0.0-0.4); Eosinophils % 3.6 % (0.1-12.0); Hematocrit 41.2 % (42.0-52.0); Hemoglobin 13.6 g/dL (14.1-18.0); Lymphocytes # 0.6 K/mm3 (0.7-4.5); Lymphocytes % 15.1 % (10-50); Mean Corpuscular HGB Conc 32.9 g/dL (31.8-35.4); Mean Corpuscular Hemoglobin 33.6 pg (27.0-31.2); Mean Platelet Volume 7.6 fl (7.4-10.4); Monocytes # 0.5 K/mm3 (0.1-1.0); Monocytes % 12.8 % (1.7-9.3); Neutrophils # 2.5 K/mm3 (1.8-7.8); Neutrophils % 66.3 % (37.0-80.0); Platelet Count 222 K/mm3 (142-424); Red Blood Count 4.04 M/mm3 (4.60-6.20); Red Cell Distribution Width 17.3 % (11.5-17.5); White Blood Count 3.7 K/mm3 (4.8-10.8)
[2022-08-06 10:42] LABS: Chloride 104 mmol/L (98-107); Potassium 4.3 mmoL/L (3.5-5.1); Sodium 141 mmol/L (136-145)
[2022-08-06 10:44] LABS: Alanine Aminotransferase 24 U/L (12-78); Aspartate Amino Transferase 27 U/L (17-59); Blood Urea Nitrogen 14 mg/dl (9-20); Creatinine Clearance Estimated 152 mL/min (50-200); Estimated Glomerular Filt Rate 88 ml/min (>60); GFR (African American) 106 ML/MIN (>60)
[2022-08-06 10:45] LABS: Albumin Level 4.6 g/dl (3.5-5.0); Albumin/Globulin Ratio 1.6 (1.1-1.8); Alkaline Phosphatase 70 U/L (38-126); Anion Gap 13.3 mEq/L (5-15); Bilirubin,Total 0.4 mg/dl (0.2-1.3); Calcium 9.3 mg/dl (8.4-10.2); Carbon Dioxide 28 mmol/L (22.0-30.0); Globulin 2.9 g/dL (1.3-3.2); Glucose 103 mg/dl (74-100); Total Protein,Serum 7.5 g/dl (6.3-8.2)
== END 2022-08-06 10:50 | disposition home or self-care (01) ==
LOC: INF 10:09
PROVIDERS: PCP Family Medicine; Visit Provider Internal Medicine Medical Oncology
DX: C95.00 Acute leukemia of unspecified cell type not having achieved remission (principal); Z45.2 Encounter for adjustment and management of vascular access device
CPT/HCPCS: 36592; 80053; 85025

== ENCOUNTER 2022-08-10 08:20 | Outpatient (CLI) | payer BC, SELFPAY ==
[2022-08-10 09:06] VITALS: BP 130/75; PULSE 55; RESP 18; TEMP 36.2; O2SAT 100
[2022-08-10 09:36] VITALS: BP 136/71; PULSE 53; RESP 18; O2SAT 99
[2022-08-10 10:20] VITALS: BP 126/61; PULSE 53; RESP 18; O2SAT 99
== END 2022-08-10 10:20 | disposition home or self-care (01) ==
LOC: INF 08:21
PROVIDERS: PCP Family Medicine; Visit Provider Internal Medicine Medical Oncology
DX: Z51.11 Encounter for antineoplastic chemotherapy (principal); C92.00 Acute myeloblastic leukemia, not having achieved remission
CPT/HCPCS: 96413; J0894

== ENCOUNTER 2022-08-11 07:59 | Outpatient (CLI) | payer BC, SELFPAY ==
[2022-08-11 08:38] VITALS: BP 110/60; PULSE 58; RESP 18; TEMP 36; O2SAT 96
[2022-08-11 09:55] VITALS: BP 113/67; PULSE 54; RESP 18
== END 2022-08-11 09:55 | disposition home or self-care (01) ==
LOC: INF 07:59
PROVIDERS: PCP Family Medicine; Visit Provider Internal Medicine Medical Oncology
DX: Z51.11 Encounter for antineoplastic chemotherapy (principal); C92.00 Acute myeloblastic leukemia, not having achieved remission
CPT/HCPCS: 96413; J0894

== ENCOUNTER 2022-08-12 14:40 | Outpatient (CLI) | payer BC, SELFPAY ==
[2022-08-12 15:01] VITALS: BP 123/66; PULSE 82; RESP 18; TEMP 36.2; O2SAT 99
[2022-08-12 15:15] VITALS: BP 131/65; PULSE 78; RESP 18; O2SAT 99
[2022-08-12 15:30] VITALS: BP 125/72; PULSE 79; RESP 18; O2SAT 99
[2022-08-12 15:45] VITALS: BP 127/68; PULSE 73; RESP 18; O2SAT 99
[2022-08-12 16:09] VITALS: BP 132/70; PULSE 68; RESP 18; O2SAT 99
== END 2022-08-12 16:18 | disposition home or self-care (01) ==
LOC: INF 14:41
PROVIDERS: PCP Family Medicine; Visit Provider Internal Medicine Medical Oncology
DX: Z51.11 Encounter for antineoplastic chemotherapy (principal); C92.00 Acute myeloblastic leukemia, not having achieved remission
CPT/HCPCS: 96413; J0894

== ENCOUNTER 2022-08-13 07:59 | Outpatient (CLI) | payer BC, SELFPAY ==
[2022-08-13 08:50] VITALS: BP 115/69; PULSE 72; RESP 18; TEMP 36.1; O2SAT 95
[2022-08-13 09:20] VITALS: BP 112/68; PULSE 60; RESP 18; O2SAT 96
[2022-08-13 09:48] VITALS: BP 109/68; PULSE 65; RESP 18; O2SAT 96
== END 2022-08-13 09:58 | disposition home or self-care (01) ==
LOC: INF 08:00
PROVIDERS: PCP Family Medicine; Visit Provider Internal Medicine Medical Oncology
DX: Z51.11 Encounter for antineoplastic chemotherapy (principal); C92.00 Acute myeloblastic leukemia, not having achieved remission
CPT/HCPCS: 96413; J0894

== ENCOUNTER 2022-08-14 08:09 | Outpatient (CLI) | payer BC, SELFPAY ==
[2022-08-14 08:45] VITALS: BP 122/70; PULSE 56; RESP 18; O2SAT 98
[2022-08-14 09:15] VITALS: BP 137/68; PULSE 61; RESP 18; O2SAT 99
[2022-08-14 10:05] VITALS: BP 146/77; PULSE 57; RESP 18; TEMP 36.2; O2SAT 99
== END 2022-08-14 10:05 | disposition home or self-care (01) ==
LOC: INF 08:09
PROVIDERS: PCP Family Medicine; Visit Provider Internal Medicine Medical Oncology
DX: Z51.11 Encounter for antineoplastic chemotherapy (principal); C92.00 Acute myeloblastic leukemia, not having achieved remission
CPT/HCPCS: 96413; J0894

== ENCOUNTER 2022-08-19 15:00 | Outpatient (CLI) | payer BC, SELFPAY ==
[2022-08-19 15:05] VITALS: BMI 34.7
[2022-08-19 15:23] LABS: Basophils % 0.8 % (0.1-2.0); Eosinophils # 0.1 K/mm3 (0.0-0.4); Hematocrit 37.6 % (42.0-52.0); Hemoglobin 12.7 g/dL (14.1-18.0); Lymphocytes # 0.5 K/mm3 (0.7-4.5); Lymphocytes % 14.7 % (10-50); Mean Corpuscular HGB Conc 33.7 g/dL (31.8-35.4); Mean Corpuscular Hemoglobin 34.4 pg (27.0-31.2); Mean Corpuscular Volume 102.1 fl (80-94); Mean Platelet Volume 8.4 fl (7.4-10.4); Monocytes # 0.2 K/mm3 (0.1-1.0); Monocytes % 4.8 % (1.7-9.3); Neutrophils # 2.8 K/mm3 (1.8-7.8); Neutrophils % 76.8 % (37.0-80.0); Platelet Count 130 K/mm3 (142-424); Red Blood Count 3.69 M/mm3 (4.60-6.20); Red Cell Distribution Width 16.6 % (11.5-17.5); White Blood Count 3.7 K/mm3 (4.8-10.8)
[2022-08-19 15:32] LABS: Chloride 104 mmol/L (98-107)
[2022-08-19 15:33] LABS: Potassium 4.2 mmoL/L (3.5-5.1); Sodium 139 mmol/L (136-145)
[2022-08-19 15:35] LABS: Alanine Aminotransferase 25 U/L (12-78); Alkaline Phosphatase 72 U/L (38-126); Aspartate Amino Transferase 30 U/L (17-59); Bilirubin,Total 0.4 mg/dl (0.2-1.3); Blood Urea Nitrogen 19 mg/dl (9-20); Creatinine Clearance Estimated 126 mL/min (50-200); Estimated Glomerular Filt Rate 78 ml/min (>60); GFR (African American) 94 ML/MIN (>60)
[2022-08-19 15:36] LABS: Albumin Level 4.4 g/dl (3.5-5.0); Albumin/Globulin Ratio 1.5 (1.1-1.8); Anion Gap 12.2 mEq/L (5-15); Calcium 9.1 mg/dl (8.4-10.2); Carbon Dioxide 27 mmol/L (22.0-30.0); Glucose 94 mg/dl (74-100); Total Protein,Serum 7.4 g/dl (6.3-8.2)
== END 2022-08-19 15:31 | disposition home or self-care (01) ==
LOC: INF 15:01
PROVIDERS: PCP Family Medicine; Visit Provider Internal Medicine Medical Oncology
DX: C95.00 Acute leukemia of unspecified cell type not having achieved remission (principal); Z45.2 Encounter for adjustment and management of vascular access device
CPT/HCPCS: 36592; 80053; 85025

== ENCOUNTER 2022-08-26 14:48 | Outpatient (CLI) | payer BC, SELFPAY ==
[2022-08-26 14:57] VITALS: BMI 37.8
[2022-08-26 15:15] LABS: Basophils % 0.5 % (0.1-2.0); Eosinophils # 0.1 K/mm3 (0.0-0.4); Eosinophils % 2.9 % (0.1-12.0); Hematocrit 37.2 % (42.0-52.0); Hemoglobin 12.7 g/dL (14.1-18.0); Lymphocytes # 0.4 K/mm3 (0.7-4.5); Lymphocytes % 21.9 % (10-50); Mean Corpuscular HGB Conc 34.1 g/dL (31.8-35.4); Mean Corpuscular Hemoglobin 34.3 pg (27.0-31.2); Mean Corpuscular Volume 100.7 fl (80-94); Mean Platelet Volume 9.1 fl (7.4-10.4); Monocytes # 0.1 K/mm3 (0.1-1.0); Monocytes % 6.8 % (1.7-9.3); Neutrophils # 1.2 K/mm3 (1.8-7.8); Neutrophils % 67.9 % (37.0-80.0); Platelet Count 63 K/mm3 (142-424); Red Blood Count 3.69 M/mm3 (4.60-6.20); White Blood Count 1.8 K/mm3 (4.8-10.8)
[2022-08-26 15:24] LABS: Chloride 109 mmol/L (98-107); Potassium 4.2 mmoL/L (3.5-5.1); Sodium 143 mmol/L (136-145)
[2022-08-26 15:27] LABS: Alanine Aminotransferase 25 U/L (12-78); Albumin Level 4.7 g/dl (3.5-5.0); Albumin/Globulin Ratio 1.6 (1.1-1.8); Alkaline Phosphatase 67 U/L (38-126); Anion Gap 10.2 mEq/L (5-15); Aspartate Amino Transferase 29 U/L (17-59); Bilirubin,Total 0.3 mg/dl (0.2-1.3); Blood Urea Nitrogen 14 mg/dl (9-20); Carbon Dioxide 28 mmol/L (22.0-30.0); Creatinine Clearance Estimated 152 mL/min (50-200); Estimated Glomerular Filt Rate 88 ml/min (>60); GFR (African American) 106 ML/MIN (>60); Globulin 2.9 g/dL (1.3-3.2); Glucose 116 mg/dl (74-100); Total Protein,Serum 7.6 g/dl (6.3-8.2)
== END 2022-08-26 15:31 | disposition home or self-care (01) ==
LOC: INF 14:49
PROVIDERS: PCP Family Medicine; Visit Provider Internal Medicine Medical Oncology
DX: C92.00 Acute myeloblastic leukemia, not having achieved remission (principal); Z45.2 Encounter for adjustment and management of vascular access device
CPT/HCPCS: 36592; 80053; 85025

== ENCOUNTER 2022-09-02 14:28 | Outpatient (CLI) | payer BC, SELFPAY ==
[2022-09-02 14:31] VITALS: BMI 39.1
[2022-09-02 15:03] LABS: Chloride 106 mmol/L (98-107); Potassium 3.8 mmoL/L (3.5-5.1); Sodium 141 mmol/L (136-145)
[2022-09-02 15:05] LABS: Alanine Aminotransferase 28 U/L (12-78); Aspartate Amino Transferase 29 U/L (17-59); Blood Urea Nitrogen 14 mg/dl (9-20); Creatinine Clearance Estimated 158 mL/min (50-200); Estimated Glomerular Filt Rate 88 ml/min (>60); GFR (African American) 106 ML/MIN (>60)
[2022-09-02 15:06] LABS: Albumin Level 4.6 g/dl (3.5-5.0); Albumin/Globulin Ratio 1.5 (1.1-1.8); Alkaline Phosphatase 69 U/L (38-126); Anion Gap 11.8 mEq/L (5-15); Bilirubin,Total 0.4 mg/dl (0.2-1.3); Calcium 8.9 mg/dl (8.4-10.2); Carbon Dioxide 27 mmol/L (22.0-30.0); Glucose 140 mg/dl (74-100); Total Protein,Serum 7.6 g/dl (6.3-8.2)
[2022-09-02 15:13] LABS: Basophils % 2.2 % (0.1-2.0); Hematocrit 38.3 % (42.0-52.0); Lymphocytes # 0.4 K/mm3 (0.7-4.5); Lymphocytes % 36.9 % (10-50); Mean Corpuscular HGB Conc 33.9 g/dL (31.8-35.4); Mean Corpuscular Hemoglobin 33.6 pg (27.0-31.2); Mean Platelet Volume 8.5 fl (7.4-10.4); Monocytes % 3.2 % (1.7-9.3); Neutrophils # 0.6 K/mm3 (1.8-7.8); Neutrophils % 54.8 % (37.0-80.0); Platelet Count 135 K/mm3 (142-424); Red Blood Count 3.87 M/mm3 (4.60-6.20); Red Cell Distribution Width 17.3 % (11.5-17.5); White Blood Count 1.2 K/mm3 (4.8-10.8)
== END 2022-09-02 15:00 | disposition home or self-care (01) ==
LOC: INF 14:29
PROVIDERS: PCP Family Medicine; Visit Provider Internal Medicine Medical Oncology
DX: Z45.2 Encounter for adjustment and management of vascular access device (principal); C95.00 Acute leukemia of unspecified cell type not having achieved remission
CPT/HCPCS: 36592; 80053; 85025; 96523

== ENCOUNTER 2022-09-09 14:56 | Outpatient (CLI) | payer BC, SELFPAY ==
[2022-09-09 15:03] VITALS: BMI 34.7
[2022-09-09 15:20] LABS: Basophils # 0.1 K/mm3 (0-0.2); Basophils % 7.7 % (0.1-2.0); Eosinophils % 2.5 % (0.1-12.0); Hematocrit 40.5 % (42.0-52.0); Hemoglobin 13.6 g/dL (14.1-18.0); Lymphocytes # 0.6 K/mm3 (0.7-4.5); Lymphocytes % 50.9 % (10-50); Mean Corpuscular HGB Conc 33.6 g/dL (31.8-35.4); Mean Corpuscular Hemoglobin 33.4 pg (27.0-31.2); Mean Corpuscular Volume 99.1 fl (80-94); Mean Platelet Volume 7.7 fl (7.4-10.4); Monocytes # 0.1 K/mm3 (0.1-1.0); Monocytes % 4.6 % (1.7-9.3); Neutrophils # 0.5 K/mm3 (1.8-7.8); Neutrophils % 42.1 % (37.0-80.0); Platelet Count 306 K/mm3 (142-424); Red Blood Count 4.08 M/mm3 (4.60-6.20); Red Cell Distribution Width 16.4 % (11.5-17.5); White Blood Count 1.2 K/mm3 (4.8-10.8)
[2022-09-09 15:26] LABS: Alanine Aminotransferase 26 U/L (12-78); Albumin Level 4.7 g/dl (3.5-5.0); Albumin/Globulin Ratio 1.6 (1.1-1.8); Alkaline Phosphatase 73 U/L (38-126); Anion Gap 7.9 mEq/L (5-15); Aspartate Amino Transferase 31 U/L (17-59); Bilirubin,Total 0.5 mg/dl (0.2-1.3); Blood Urea Nitrogen 15 mg/dl (9-20); Calcium 8.9 mg/dl (8.4-10.2); Carbon Dioxide 28 mmol/L (22.0-30.0); Chloride 107 mmol/L (98-107); Creatinine Clearance Estimated 140 mL/min (50-200); Estimated Glomerular Filt Rate 88 ml/min (>60); GFR (African American) 106 ML/MIN (>60); Globulin 2.9 g/dL (1.3-3.2); Glucose 135 mg/dl (74-100); Potassium 3.9 mmoL/L (3.5-5.1); Sodium 139 mmol/L (136-145); Total Protein,Serum 7.6 g/dl (6.3-8.2)
[2022-09-09 15:31] LABS: MANUAL DIFFERENTIAL MANUAL DIFFERENTIAL (MANUAL DIFF)
[2022-09-09 16:12] LABS: Eosinophils % 1 % (0-3); Lymphocytes % 44 % (10-50); Monocytes % 2 % (2-9); Neutrophils % 49 % (42-76); Total Cells Counted 100
[2022-09-09 16:13] LABS: Platelet Estimate Normal; RBC Morphology Normal
== END 2022-09-09 15:25 | disposition home or self-care (01) ==
LOC: INF 14:57
PROVIDERS: PCP Family Medicine; Visit Provider Internal Medicine Medical Oncology
DX: C95.00 Acute leukemia of unspecified cell type not having achieved remission (principal); Z45.2 Encounter for adjustment and management of vascular access device
CPT/HCPCS: 36592; 80053; 85007; 85025

== ENCOUNTER 2022-09-16 14:50 | Outpatient (CLI) | payer BC, SELFPAY ==
[2022-09-16 14:53] VITALS: BMI 34.7
[2022-09-16 15:13] LABS: Basophils # 0.1 K/mm3 (0-0.2); Basophils % 3.1 % (0.1-2.0); Hematocrit 41.4 % (42.0-52.0); Hemoglobin 14.2 g/dL (14.1-18.0); Lymphocytes # 0.6 K/mm3 (0.7-4.5); Lymphocytes % 33.4 % (10-50); Mean Corpuscular HGB Conc 34.2 g/dL (31.8-35.4); Mean Corpuscular Hemoglobin 34.2 pg (27.0-31.2); Mean Platelet Volume 7.3 fl (7.4-10.4); Monocytes # 0.1 K/mm3 (0.1-1.0); Monocytes % 7.1 % (1.7-9.3); Neutrophils % 54.4 % (37.0-80.0); Platelet Count 223 K/mm3 (142-424); Red Blood Count 4.14 M/mm3 (4.60-6.20); Red Cell Distribution Width 15.9 % (11.5-17.5); White Blood Count 1.9 K/mm3 (4.8-10.8)
[2022-09-16 15:18] LABS: Alanine Aminotransferase 30 U/L (12-78); Albumin Level 4.7 g/dl (3.5-5.0); Albumin/Globulin Ratio 1.6 (1.1-1.8); Alkaline Phosphatase 72 U/L (38-126); Anion Gap 10.7 mEq/L (5-15); Aspartate Amino Transferase 31 U/L (17-59); Bilirubin,Total 0.3 mg/dl (0.2-1.3); Blood Urea Nitrogen 18 mg/dl (9-20); Calcium 9.3 mg/dl (8.4-10.2); Carbon Dioxide 28 mmol/L (22.0-30.0); Chloride 104 mmol/L (98-107); Creatinine Clearance Estimated 126 mL/min (50-200); Estimated Glomerular Filt Rate 78 ml/min (>60); GFR (African American) 94 ML/MIN (>60); Globulin 2.9 g/dL (1.3-3.2); Glucose 157 mg/dl (74-100); Potassium 3.7 mmoL/L (3.5-5.1); Sodium 139 mmol/L (136-145); Total Protein,Serum 7.6 g/dl (6.3-8.2)
== END 2022-09-16 15:45 | disposition home or self-care (01) ==
LOC: INF 14:50
PROVIDERS: PCP Family Medicine; Visit Provider Internal Medicine Medical Oncology
DX: Z45.2 Encounter for adjustment and management of vascular access device (principal); C92.00 Acute myeloblastic leukemia, not having achieved remission
CPT/HCPCS: 36592; 80053; 85025

== ENCOUNTER 2022-09-21 12:36 | Outpatient (CLI) | payer BC, SELFPAY ==
[2022-09-21 13:15] VITALS: BP 122/57; PULSE 56; RESP 18; TEMP 36.4; O2SAT 100
[2022-09-21 13:45] VITALS: BP 115/58; PULSE 54; RESP 18; O2SAT 99
[2022-09-21 14:26] VITALS: BP 110/59; PULSE 51; RESP 18; O2SAT 100
== END 2022-09-21 14:27 | disposition home or self-care (01) ==
LOC: INF 12:37
PROVIDERS: PCP Family Medicine; Visit Provider Internal Medicine Medical Oncology
DX: D46.9 Myelodysplastic syndrome, unspecified (principal)
CPT/HCPCS: 96413; J0894

== ENCOUNTER 2022-09-22 13:14 | Outpatient (CLI) | payer BC, SELFPAY ==
[2022-09-22 14:05] VITALS: BP 116/66; PULSE 74; RESP 18; TEMP 36.4; O2SAT 96
[2022-09-22 14:30] VITALS: BP 121/68; PULSE 71; RESP 18; O2SAT 99
[2022-09-22 15:20] VITALS: BP 132/74; PULSE 75; RESP 18; O2SAT 99
== END 2022-09-22 15:20 | disposition home or self-care (01) ==
LOC: INF 13:15
PROVIDERS: PCP Family Medicine; Visit Provider Internal Medicine Medical Oncology
DX: D46.9 Myelodysplastic syndrome, unspecified (principal)
CPT/HCPCS: 96413; J0894

== ENCOUNTER 2022-09-23 12:48 | Outpatient (CLI) | payer BC, SELFPAY ==
[2022-09-23 13:35] VITALS: BP 142/75; PULSE 57; RESP 18; TEMP 36.4; O2SAT 99
[2022-09-23 14:32] VITALS: BP 135/70; PULSE 62; RESP 18; O2SAT 99
[2022-09-23 14:40] VITALS: BP 143/87; PULSE 55; RESP 18; O2SAT 99
== END 2022-09-23 14:40 | disposition home or self-care (01) ==
LOC: INF 12:48
PROVIDERS: PCP Family Medicine; Visit Provider Internal Medicine Medical Oncology
DX: D46.9 Myelodysplastic syndrome, unspecified (principal)
CPT/HCPCS: 96413; J0894

== ENCOUNTER 2022-09-24 12:52 | Outpatient (CLI) | payer BC, SELFPAY ==
[2022-09-24 13:20] VITALS: BP 145/70; PULSE 55; RESP 18; O2SAT 100
[2022-09-24 13:35] VITALS: BP 124/65; PULSE 55; RESP 16
[2022-09-24 13:55] VITALS: BP 119/71; PULSE 54; RESP 18; O2SAT 99
[2022-09-24 14:30] VITALS: BP 126/65; PULSE 55; RESP 18; O2SAT 99
== END 2022-09-24 14:44 | disposition home or self-care (01) ==
LOC: INF 12:52
PROVIDERS: PCP Family Medicine; Visit Provider Internal Medicine Medical Oncology
DX: D46.9 Myelodysplastic syndrome, unspecified (principal)
CPT/HCPCS: 96413; J0894

== ENCOUNTER 2022-09-25 09:55 | Outpatient (CLI) | payer BC, SELFPAY ==
[2022-09-25 10:38] VITALS: BP 127/68; PULSE 52; RESP 18; O2SAT 100
[2022-09-25 12:07] VITALS: BP 116/61; PULSE 51; RESP 18; TEMP 36.7; O2SAT 98
== END 2022-09-25 12:07 | disposition home or self-care (01) ==
LOC: INF 09:56
PROVIDERS: PCP Family Medicine; Visit Provider Internal Medicine Medical Oncology
DX: D46.9 Myelodysplastic syndrome, unspecified (principal); Z45.2 Encounter for adjustment and management of vascular access device
CPT/HCPCS: 96413; 96523; J0894

== ENCOUNTER 2022-10-02 14:02 | Outpatient (CLI) | payer BC, SELFPAY ==
[2022-10-02 14:06] VITALS: BMI 34.7
[2022-10-02 14:27] LABS: Basophils % 0.6 % (0.1-2.0); Eosinophils # 0.1 K/mm3 (0.0-0.4); Eosinophils % 1.7 % (0.1-12.0); Hematocrit 36.3 % (42.0-52.0); Hemoglobin 12.7 g/dL (14.1-18.0); Lymphocytes # 0.4 K/mm3 (0.7-4.5); Lymphocytes % 14.4 % (10-50); Mean Corpuscular HGB Conc 34.9 g/dL (31.8-35.4); Mean Corpuscular Hemoglobin 34.3 pg (27.0-31.2); Mean Corpuscular Volume 98.2 fl (80-94); Monocytes # 0.1 K/mm3 (0.1-1.0); Neutrophils # 2.3 K/mm3 (1.8-7.8); Neutrophils % 79.3 % (37.0-80.0); Platelet Count 64 K/mm3 (142-424); Red Blood Count 3.69 M/mm3 (4.60-6.20); Red Cell Distribution Width 15.6 % (11.5-17.5)
[2022-10-02 14:43] LABS: Alanine Aminotransferase 30 U/L (12-78); Albumin Level 4.7 g/dl (3.5-5.0); Albumin/Globulin Ratio 1.6 (1.1-1.8); Alkaline Phosphatase 75 U/L (38-126); Anion Gap 6.1 mEq/L (5-15); Aspartate Amino Transferase 32 U/L (17-59); Bilirubin,Total 0.6 mg/dl (0.2-1.3); Blood Urea Nitrogen 16 mg/dl (9-20); Calcium 8.9 mg/dl (8.4-10.2); Carbon Dioxide 27 mmol/L (22.0-30.0); Chloride 108 mmol/L (98-107); Creatinine Clearance Estimated 124 mL/min (50-200); Estimated Glomerular Filt Rate 77 ml/min (>60); GFR (African American) 94 ML/MIN (>60); Globulin 2.9 g/dL (1.3-3.2); Glucose 108 mg/dl (74-100); Potassium 4.1 mmoL/L (3.5-5.1); Sodium 137 mmol/L (136-145); Total Protein,Serum 7.6 g/dl (6.3-8.2)
== END 2022-10-02 14:30 | disposition home or self-care (01) ==
LOC: INF 14:02
PROVIDERS: PCP Family Medicine; Visit Provider Internal Medicine Medical Oncology
DX: Z45.2 Encounter for adjustment and management of vascular access device (principal); C92.00 Acute myeloblastic leukemia, not having achieved remission
CPT/HCPCS: 36592; 80053; 85025

== ENCOUNTER 2022-10-09 13:24 | Outpatient (CLI) | payer BC, SELFPAY ==
[2022-10-09 13:28] VITALS: BMI 34.7
[2022-10-09 13:50] LABS: Chloride 103 mmol/L (98-107); Potassium 3.7 mmoL/L (3.5-5.1); Sodium 137 mmol/L (136-145)
[2022-10-09 13:53] LABS: Alanine Aminotransferase 30 U/L (12-78); Albumin Level 4.6 g/dl (3.5-5.0); Albumin/Globulin Ratio 1.5 (1.1-1.8); Alkaline Phosphatase 62 U/L (38-126); Anion Gap 10.7 mEq/L (5-15); Aspartate Amino Transferase 33 U/L (17-59); Bilirubin,Total 0.5 mg/dl (0.2-1.3); Blood Urea Nitrogen 14 mg/dl (9-20); Carbon Dioxide 27 mmol/L (22.0-30.0); Creatinine Clearance Estimated 124 mL/min (50-200); Estimated Glomerular Filt Rate 77 ml/min (>60); GFR (African American) 94 ML/MIN (>60); Total Protein,Serum 7.6 g/dl (6.3-8.2)
[2022-10-09 13:54] LABS: Calcium 8.8 mg/dl (8.4-10.2); Glucose 128 mg/dl (74-100)
[2022-10-09 14:08] LABS: Basophils % 1.1 % (0.1-2.0); Eosinophils % 4.3 % (0.1-12.0); Hemoglobin 12.7 g/dL (14.1-18.0); Lymphocytes # 0.4 K/mm3 (0.7-4.5); Lymphocytes % 52.3 % (10-50); Mean Corpuscular HGB Conc 35.3 g/dL (31.8-35.4); Mean Corpuscular Hemoglobin 34.9 pg (27.0-31.2); Mean Corpuscular Volume 98.8 fl (80-94); Monocytes # 0.1 K/mm3 (0.1-1.0); Monocytes % 9.3 % (1.7-9.3); Neutrophils # 0.2 K/mm3 (1.8-7.8); Red Blood Count 3.64 M/mm3 (4.60-6.20); Red Cell Distribution Width 16.3 % (11.5-17.5)
[2022-10-09 14:12] LABS: Platelet Count 44 K/mm3 (142-424); White Blood Count 0.7 K/mm3 (4.8-10.8)
[2022-10-09 14:13] LABS: MANUAL DIFFERENTIAL MANUAL DIFFERENTIAL (MANUAL DIFF)
[2022-10-09 14:54] LABS: Lymphocytes % 48 % (10-50); Monocytes % 4 % (2-9); Neutrophils % 48 % (42-76); Nucleated Red Blood Cells 1; Total Cells Counted 25
[2022-10-09 14:55] LABS: RBC Morphology Normal
[2022-10-09 14:56] LABS: Platelet Estimate Marked Decrease
== END 2022-10-09 13:50 | disposition home or self-care (01) ==
LOC: INF 13:24
PROVIDERS: PCP Family Medicine; Visit Provider Internal Medicine Medical Oncology
DX: D61.818 Other pancytopenia (principal); Z45.2 Encounter for adjustment and management of vascular access device
CPT/HCPCS: 36592; 80053; 85007; 85025

== ENCOUNTER 2022-10-16 15:05 | Outpatient (CLI) | payer BC, SELFPAY ==
[2022-10-16 15:09] VITALS: BMI 34.7
--- NOTE | 2022-10-16 15:11 | PC.NURSE ---
1511-carl christine called rn ar 1511 to report wbc 0.8. Rn repeated and verifed pt name, , and lab value.result called to dr. starks and no new orders received.
[2022-10-16 15:23] LABS: Basophils % 3.4 % (0.1-2.0); Eosinophils % 2.3 % (0.1-12.0); Hematocrit 34.9 % (42.0-52.0); Hemoglobin 12.5 g/dL (14.1-18.0); Lymphocytes # 0.5 K/mm3 (0.7-4.5); Lymphocytes % 56.6 % (10-50); Mean Corpuscular HGB Conc 35.7 g/dL (31.8-35.4); Mean Corpuscular Hemoglobin 35.7 pg (27.0-31.2); Mean Corpuscular Volume 99.9 fl (80-94); Mean Platelet Volume 9.1 fl (7.4-10.4); Neutrophils # 0.3 K/mm3 (1.8-7.8); Neutrophils % 33.7 % (37.0-80.0); Platelet Count 127 K/mm3 (142-424); Red Cell Distribution Width 16.8 % (11.5-17.5)
[2022-10-16 15:27] LABS: White Blood Count 0.8 K/mm3 (4.8-10.8)
[2022-10-16 15:28] LABS: MANUAL DIFFERENTIAL MANUAL DIFFERENTIAL (MANUAL DIFF)
[2022-10-16 15:50] LABS: Chloride 104 mmol/L (98-107); Potassium 3.9 mmoL/L (3.5-5.1); Sodium 137 mmol/L (136-145)
[2022-10-16 15:53] LABS: Alanine Aminotransferase 28 U/L (12-78); Albumin Level 4.6 g/dl (3.5-5.0); Albumin/Globulin Ratio 1.6 (1.1-1.8); Alkaline Phosphatase 61 U/L (38-126); Anion Gap 10.9 mEq/L (5-15); Aspartate Amino Transferase 29 U/L (17-59); Bilirubin,Total 0.5 mg/dl (0.2-1.3); Blood Urea Nitrogen 17 mg/dl (9-20); Carbon Dioxide 26 mmol/L (22.0-30.0); Creatinine Clearance Estimated 138 mL/min (50-200); Estimated Glomerular Filt Rate 87 ml/min (>60); GFR (African American) 106 ML/MIN (>60); Globulin 2.9 g/dL (1.3-3.2); Total Protein,Serum 7.5 g/dl (6.3-8.2)
[2022-10-16 15:54] LABS: Calcium 8.6 mg/dl (8.4-10.2); Glucose 99 mg/dl (74-100)
[2022-10-16 17:22] LABS: Eosinophils % 4 % (0-3); Lymphocytes % 64 % (10-50); Monocytes % 8 % (2-9); Neutrophils % 24 % (42-76); Total Cells Counted 25
[2022-10-16 17:23] LABS: Platelet Estimate Slight Decrease; RBC Morphology Normal
== END 2022-10-16 15:29 | disposition home or self-care (01) ==
PROVIDERS: PCP Family Medicine; Visit Provider Internal Medicine Medical Oncology
DX: C92.00 Acute myeloblastic leukemia, not having achieved remission (principal)
CPT/HCPCS: 36592; 80053; 85007; 85025

== ENCOUNTER 2022-11-24 10:35 | Outpatient (CLI) | payer BC, SELFPAY ==
[2022-11-24 10:39] VITALS: BMI 34.7
[2022-11-24 11:11] LABS: Basophils % 0.9 % (0.1-2.0); Eosinophils % 1.9 % (0.1-12.0); Hematocrit 32.4 % (42.0-52.0); Lymphocytes # 0.6 K/mm3 (0.7-4.5); Lymphocytes % 35.5 % (10-50); Mean Corpuscular HGB Conc 34.1 g/dL (31.8-35.4); Mean Corpuscular Hemoglobin 34.9 pg (27.0-31.2); Mean Corpuscular Volume 102.3 fl (80-94); Monocytes # 0.2 K/mm3 (0.1-1.0); Monocytes % 9.4 % (1.7-9.3); Neutrophils # 0.9 K/mm3 (1.8-7.8); Neutrophils % 52.4 % (37.0-80.0); Red Blood Count 3.16 M/mm3 (4.60-6.20); Red Cell Distribution Width 15.3 % (11.5-17.5); White Blood Count 1.8 K/mm3 (4.8-10.8)
[2022-11-24 11:23] LABS: Platelet Count 49 K/mm3 (142-424)
--- NOTE | 2022-11-24 12:02 | PC.NURSE ---
at 1122, Heena Gandhi called critical lab results of 49 to RN. name, and results verified and read back by RN. pt has standing orders in place for transfusions and does not meet criteria at this time. notified and no new orders.
== END 2022-11-24 11:01 | disposition home or self-care (01) ==
LOC: INF 10:36
PROVIDERS: PCP Family Medicine; Visit Provider Internal Medicine Medical Oncology
DX: Z45.2 Encounter for adjustment and management of vascular access device (principal); C95.00 Acute leukemia of unspecified cell type not having achieved remission
CPT/HCPCS: 36415; 85025

== ENCOUNTER 2022-12-11 13:26 | Outpatient (CLI) | payer BC, SELFPAY ==
[2022-12-11 13:29] VITALS: BMI 34.7
--- NOTE | 2022-12-11 13:56 | PC.NURSE ---
1356-collected labs via venipuncture stick with butterfly needle in right hand;pt ok to d/c home will fax labs to .
[2022-12-11 14:26] LABS: Basophils % 0.6 % (0.1-2.0); Eosinophils % 0.9 % (0.1-12.0); Hematocrit 29.2 % (42.0-52.0); Hemoglobin 10.4 g/dL (14.1-18.0); Lymphocytes % 53.2 % (10-50); Mean Corpuscular HGB Conc 35.6 g/dL (31.8-35.4); Mean Corpuscular Hemoglobin 34.9 pg (27.0-31.2); Mean Corpuscular Volume 98.1 fl (80-94); Mean Platelet Volume 10.5 fl (7.4-10.4); Monocytes # 0.1 K/mm3 (0.1-1.0); Monocytes % 6.7 % (1.7-9.3); Neutrophils # 0.7 K/mm3 (1.8-7.8); Neutrophils % 38.5 % (37.0-80.0); Red Blood Count 2.97 M/mm3 (4.60-6.20); Red Cell Distribution Width 14.3 % (11.5-17.5); White Blood Count 1.9 K/mm3 (4.8-10.8)
--- NOTE | 2022-12-11 14:29 | PC.NURSE ---
1429-jacqueline chau called rn at 1429 to report plt level 29. Rn repeated and verified pt name, , and lab value. Result called to no new orders at this time;follow standing orders.
[2022-12-11 14:30] LABS: Platelet Count 29 K/mm3 (142-424)
[2022-12-11 14:32] LABS: MANUAL DIFFERENTIAL MANUAL DIFFERENTIAL (MANUAL DIFF)
[2022-12-11 15:14] LABS: Lymphocytes % 52 % (10-50); Monocytes % 8 % (2-9); Neutrophils % 40 % (42-76); Platelet Estimate Marked Decrease; Total Cells Counted 25
[2022-12-11 15:15] LABS: Macrocytosis 1+
== END 2022-12-11 13:59 | disposition home or self-care (01) ==
LOC: INF 13:26
PROVIDERS: PCP Family Medicine; Visit Provider Internal Medicine Medical Oncology
DX: C95.00 Acute leukemia of unspecified cell type not having achieved remission (principal)
CPT/HCPCS: 36415; 85007; 85025